=== PATIENT | female | born 1950 | race Caucasian/White ===

== ENCOUNTER → 2016-02-28 | Outpatient (CLI) | payer BC, OTHER | END | disposition home or self-care (01) | LOC: C.RDSM 14:50 | PROVIDERS: ATTEND Family Medicine | DX: M25.561 Pain in right knee (principal) ==

== ENCOUNTER → 2016-06-17 | Outpatient (CLI) | payer BC ==
--- NOTE | 2016-06-17 13:17 | MAMMOGRAPHY REPORT ---
BILATERAL DIGITAL SCREENING MAMMOGRAM WITH CAD: 06/17/2016 CLINICAL HISTORY: Routine screening examination. TECHNIQUE: Bilateral CC and MLO views were obtained. Current study was also evaluated with a Compu ter Aided Detection (CAD) system. COMPARISON: Comparison is made to exams dated: 06/13/2015 mammogram, 06/08/2014 mammogram, 06/04/2013 mammogram, 05/27/2011 ultrasound, 05/27/2012 mammogram, and 05/27/2011 mammogram - [facility] enter. BREAST COMPOSITION: The tissue of both breasts is heterogeneously dense, which may obscure small ma sses. FINDINGS: There are benign rim calcifications and minimal vascular calcifications in the breasts. N o suspicious mass, architectural distortion or cluster of suspicious microcalcifications is seen. IMPRESSION: ACR BI-RADS CATEGORY 1: NEGATIVE There is no mammographic evidence of malignancy. A 1 year screening mammogram is recommended. The p atient will receive written notification of the results. Approximately 10% of breast cancers are not detected with mammography. A negative mammographic repor t should not delay biopsy if a clinically suggestive mass is present. Eva Donald M.D. ay/:06/17/2016 08:05:02 Straightening Press Operator: Sandi EDWARDS(Lita)(M), [facility] letter sent: Normal 1/2 BI-RADS Code: ACR BI-RADS Category 1: Negative
== END | disposition home or self-care (01) ==
LOC: C.MAMM 07:20
PROVIDERS: ATTEND Family Medicine
DX: Z12.31 Encounter for screening mammogram for malignant neoplasm of breast (principal)

== ENCOUNTER → 2016-11-18 | Outpatient (CLI) | payer BC | END | disposition home or self-care (01) | LOC: C.MAMM 14:28 | PROVIDERS: ATTEND Nurse Practitioner Family | DX: Z13.820 Encounter for screening for osteoporosis (principal); M85.89 Other specified disorders of bone density and structure, multiple sites ==

== ENCOUNTER 2017-05-05 09:09 | Observation (INO) | payer BC, OTHER ==
[2017-05-05] VITALS (7 sets, daily range): BP systolic 137–174; BP diastolic 78–94; PULSE 59–71; TEMP 36.6–37.1; O2SAT 95–98; Ht 167.6 cm; Wt 60.5 kg
[~2017-05-05] VITALS: Ht 167.6 cm; Wt 60.5 kg
--- NOTE | 2017-05-05 09:27 | EMERGENCY ROOM VISIT NOTE ---
History Report prepared by Sloan: Deyvi Qureshi Under the Supervision of: Dr. Tj Graham D.O. First contact with patient: 09:11 Chief Complaint: CHEST PAIN Stated Complaint: CHEST PAIN History of Present Illness The patient is a 66 year old female who presents to the Emergency Room with complaints of chest pain. The patient states that she noticed chest discomfort and palpitations. She started having palpitations 2 nights ago. She states that this occurred at rest. She also noticed diaphoresis at that time. She awoke last night noticing chest discomfort. She described this as a pressure. It was also associated with diaphoresis. She noticed it was somewhat worsened when she went to go to the bathroom and walked a small distance. She knew she had a follow-up appointment with her primary care physician today. At that appointment she had an EKG and was sent to the emergency department by ambulance because of the EKG. The patient was given aspirin as well as nitroglycerin prior to arrival. She was given nitroglycerin by the center mgr but also by the primary care physician. At this time she states that she has no discomfort in her chest. She denies having any recent travel. She denies having any swelling in her legs or shortness of breath. She denies having any abdominal pain. She states that she noticed no maneuvers that made the pain better while she was at home. The patient did not have a previous EKG for the primary care physician to compare this to. Source of History: patient Onset: 2 nights ago Position: chest Quality: other (discomfort and pressure) Modifying Factors (Worsening): other (walking) Associated Symptoms: + diaphoresis, No SOB, No abdominal pain Note: She notes palpitations. She denies any leg swelling. Review of Systems See HPI for pertinent positives & negatives. A total of 10 systems reviewed and were otherwise negative. Past Medical & Surgical Medical Problems: (1) Fibroid uterus Surgical Problems: (1) History of hysterectomy Family History Heart disease Social History Smoking Status: Never Smoker Smokeless Tobacco Use: No Alcohol Use: occasionally Drug Use: none Marital Status: single Current/Historical Medications Scheduled Cyclosporine (Ophth) (Restasis), 1 DROP OP DAILY Allergies Coded Allergies: No Known Allergies (Unverified , 05/05/17) Physical Exam Vital Signs Date Time Temp Pulse Resp B/P (MAP) Pulse Ox O2 Delivery O2 Flow Rate FiO2 05/05/17 10:39 78 24 96 05/05/17 10:09 78 21 96 05/05/17 09:39 76 19 96 05/05/17 09:31 76 05/05/17 09:31 97 Room Air 05/05/17 09:27 166/94 05/05/17 09:20 98 Room Air 05/05/17 09:20 36.7 80 20 166/94 94 Room Air 05/05/17 09:15 136/92 05/05/17 09:09 103 28 95 Physical Exam GENERAL: Patient is awake alert in no acute distress patient is resting comfortably and showing no signs of anxiety EYES: The conjunctivae are clear. The pupils are round and reactive. EARS, NOSE, MOUTH AND THROAT: The nose is without any evidence of any deformity. Mucous membranes are moist tongue is midline NECK: The neck is nontender and supple. RESPIRATORY: Normal respiratory effort is noted there is no evidence of wheezing rhonchi or rales CARDIOVASCULAR: Regular rate and rhythm noted there no murmurs rubs or gallops normal S1 normal S2 GASTROINTESTINAL: The abdomen is soft. Bowel sounds are present in all quadrants. Abdomen is nontender MUSCULOSKELETAL/EXTREMITIES: There is no evidence of gross deformity full range of motion is noted in the hips and shoulders SKIN: There is no obvious evidence of any rash. There is no pedal edema noted. NEUROLOGIC: Patient is awake alert and oriented x3. Medical Decision & Procedures ER Provider Diagnostic Interpretation: Radiology results as stated below per my review and radiologist interpretation: CHEST ONE VIEW PORTABLE CLINICAL HISTORY: CHEST PAIN dyspnea COMPARISON STUDY: No previous studies for comparison. FINDINGS: The bones soft tissues and hemidiaphragms are normal. The cardiomediastinal silhouette is normal. The lungs are clear. The pulmonary vasculature is normal. IMPRESSION: Negative chest. The above report was generated using voice recognition software. It may contain grammatical, syntax or spelling errors. Electronically signed by: Dontae Serra M.D. 05/05/2017 9:37 AM Dictated Date/Time: 05/05/2017 9:37 AM Laboratory Results 05/05/17 09:00 Red Blood Count 4.74, Mean Corpuscular Volume 88.6, Mean Corpuscular Hemoglobin 30.4, Mean Corpuscular Hemoglobin Concent 34.3, Mean Platelet Volume 9.8, Neutrophils (%) (Auto) 60.6, Lymphocytes (%) (Auto) 31.5, Monocytes (%) (Auto) 6.4, Eosinophils (%) (Auto) 0.8, Basophils (%) (Auto) 0.6, Neutrophils # (Auto) 4.83, Lymphocytes # (Auto) 2.51, Monocytes # (Auto) 0.51, Eosinophils # (Auto) 0.06, Basophils # (Auto) 0.05 05/05/17 09:00 Test 05/05/17 09:00 05/05/17 09:28 05/05/17 09:57 White Blood Count 7.97 K/uL (4.8-10.8) Red Blood Count 4.74 M/uL (4.2-5.4) Hemoglobin 14.4 g/dL (12.0-16.0) Hematocrit 42.0 % (37-47) Mean Corpuscular Volume 88.6 fL (80-100) Mean Corpuscular Hemoglobin 30.4 pg (25-34) Mean Corpuscular Hemoglobin Concent 34.3 g/dl (32-36) Platelet Count 350 K/uL (130-400) Mean Platelet Volume 9.8 fL (7.4-10.4) Neutrophils (%) (Auto) 60.6 % Lymphocytes (%) (Auto) 31.5 % Monocytes (%) (Auto) 6.4 % Eosinophils (%) (Auto) 0.8 % Basophils (%) (Auto) 0.6 % Neutrophils # (Auto) 4.83 K/uL (1.4-6.5) Lymphocytes # (Auto) 2.51 K/uL (1.2-3.4) Monocytes # (Auto) 0.51 K/uL (0.11-0.59) Eosinophils # (Auto) 0.06 K/uL (0-0.5) Basophils # (Auto) 0.05 K/uL (0-0.2) RDW Standard Deviation 44.6 fL (36.4-46.3) RDW Coefficient of Variation 13.5 % (11.5-14.5) Immature Granulocyte % (Auto) 0.1 % Immature Granulocyte # (Auto) 0.01 K/uL (0.00-0.02) Anion Gap 8.0 mmol/L (3-11) Est Creatinine Clear Calc Drug Dose 65.5 ml/min Estimated GFR () 84.6 Estimated GFR (Non- 73.0 BUN/Creatinine Ratio 27.4 (10-20) Calcium Level 9.3 mg/dl (8.5-10.1) Magnesium Level 2.4 mg/dl (1.8-2.4) Total Bilirubin 0.4 mg/dl (0.2-1) Direct Bilirubin < 0.1 mg/dl (0-0.2) Aspartate Amino Transf (AST/SGOT) 24 U/L (15-37) Alanine Aminotransferase (ALT/SGPT) 30 U/L (12-78) Alkaline Phosphatase 82 U/L (45-117) Total Protein 7.9 gm/dl (6.4-8.2) Albumin 4.2 gm/dl (3.4-5.0) Triglycerides Level 98 mg/dl (0-150) Cholesterol Level 254 mg/dl (0-200) HDL Cholesterol 94 mg/dl LDL Cholesterol, Calculated 140 mg/dl VLDL Cholesterol, Calculated 20 mg/dl Cholesterol/HDL Ratio 2.7 Lipase 173 U/L (73-393) Thyroid Stimulating Hormone (TSH) 1.150 uIu/ml (0.300-4.500) Free Thyroxine 0.83 ng/dl (0.80-1.60) Bedside Troponin I < 0.030 ng/ml (0-0.045) Prothrombin Time 10.0 SECONDS (9.0-12.0) Prothromb Time International Ratio 1.0 (0.9-1.1) Activated Partial Thromboplast Time 25.5 SECONDS (21.0-31.0) Partial Thromboplastin Ratio 1.0 D-Dimer 350 ug/L FEU (0-500) Laboratory results per my review. Medications Administered Medications (Trade) Dose Ordered Sig/Patrica Route Start Time Stop Time Status Last Admin Dose Admin Sodium Chloride 1,000 ml @ 75 mls/hr [id number] IV 05/05/17 11:03 06/04/17 11:02 05/05/17 14:01 75 MLS/HR Sodium Chloride 1,000 ml @ 999 mls/hr Q1H1M ONCE IV 05/05/17 11:15 05/05/17 12:15 DC 05/05/17 11:15 999 MLS/HR ECG Per My Interpretation Indication: chest pain Rate (beats per minute): 80 Rhythm: normal sinus Findings: ST depression (Lateral), other (Poor R-wave progression was noted. Incomplete right bundle branch block pattern was noted.) Change: no significant change (Compared to tracing done in the office earlier this morning.) ED Course 09: The patient was evaluated in room A10. A complete history and physical examination were performed. 1002: I reassessed the patient at this time. She is still pain free. I discussed the results and treatment plan with the patient. I answered all pertaining questions that she had. She expressed understanding and verbalized agreement. The patient will be further evaluated. 1018: I spoke with Dr. Sky Yang [facility] hospitalist. We discussed the patients case. The patient will be evaluated by the [facility] for further management. Medical Decision Prior records/ancillary studies reviewed. Triage Nursing notes reviewed. Additional history obtained from the prehospital personnel. The patient's history was concerning for chest pain. Differential diagnosis: Etiologies such as cardiac ischemia, aortic dissection, pulmonary embolism, pneumonia, pneumothorax, musculoskeletal, infections, pericarditis, myocarditis , esophageal rupture, gastrointestinal, as well as others were entertained. The patient is a 66-year-old female who presented to the emergency department for an evaluation of chest discomfort. The patient started having palpitations a few nights ago associated with diaphoresis. She then started to develop exertional chest discomfort. She was treated with aspirin and nitroglycerin prior to arrival at her primary care physician's office as well as by the prehospital personnel. At this time she is pain-free. She does have some ST segment abnormalities on her EKG but no previous one could be found for comparison. Her initial troponin was negative. I discussed the patient's laboratory and radiographic studies with her. I also discussed the limitations of the emergency department workup for chest pain. Given her abnormal EKG and her family history I discussed her case with the on-call alex [facility] hospitalist. They have agreed to evaluate the patient in the emergency department for further management and disposition. Medication Reconcilliation Current Medication List: was personally reviewed by me Blood Pressure Screening Patient's blood pressure: Elevated blood pressure Blood pressure disposition: Elevated BP felt to be situational Consults Time Called: 1006 Consulting Physician: Dr. Sky Yang [facility] hospitalist Returned Call: [address] Sky Yang [facility] hospital[facility]. We discussed the patient' s case. The patient will be evaluated by the [facility] for further management. Impression Primary Impression: Chest pain Additional Impression: Abnormal ECG Scribe Attestation The scribe's documentation has been prepared under my direction and personally reviewed by me in its entirety. I confirm that the note above accurately reflects all work, treatment, procedures, and medical decision making performed by me. Departure Information Dispostion Being Evaluated By Hospitalist Referrals Pao Espinal C.RNakiaN.PNakia (PCP) Patient Instructions My [facility] Problem Qualifiers Primary Impression: Chest pain Chest pain type: unspecified Qualified Codes: R07.9 - Chest pain, unspecified
[2017-05-05 09:30] LABS: BASO % 0.6 %; BASO ABS # 0.05 K/uL (0-0.2); EOS % 0.8 %; EOS ABS # 0.06 K/uL (0-0.5); HEMOGLOBIN 14.4 g/dL (12.0-16.0); IG# 0.01 K/uL (0.00-0.02); LYMPH % 31.5 %; LYMPH ABS # 2.51 K/uL (1.2-3.4); MEAN CELL VOLUME 88.6 fL (80-100); MEAN CORPUSCULAR HEMOGLOBIN 30.4 pg (25-34); MEAN CORPUSCULAR HGB CONC 34.3 g/dl (32-36); MEAN PLATELET VOLUME 9.8 fL (7.4-10.4); MONO % 6.4 %; MONO ABS # 0.51 K/uL (0.11-0.59); NEUT % 60.6 %; NEUT ABS # 4.83 K/uL (1.4-6.5); PLATELET COUNT 350 K/uL (130-400); RED CELL DISTRIBUTION WIDTH CV 13.5 % (11.5-14.5); RED CELL DISTRIBUTION WIDTH SD 44.6 fL (36.4-46.3); WHITE BLOOD COUNT 7.97 K/uL (4.8-10.8)
--- NOTE | 2017-05-05 09:39 | DIAGNOSTIC IMAGING REPORT ---
CHEST ONE VIEW PORTABLE CLINICAL HISTORY: CHEST PAIN dyspnea COMPARISON STUDY: No previous studies for comparison. FINDINGS: The bones soft tissues and hemidiaphragms are normal. The cardiomediastinal silhouette is normal. The lungs are clear. The pulmonary vasculature is normal. IMPRESSION: Negative chest. The above report was generated using voice recognition software. It may contain grammatical, syntax or spelling errors. Electronically signed by: Dontae Serra M.D. 05/05/2017 9:37 AM Dictated Date/Time: 05/05/2017 9:37 AM
[2017-05-05 09:49] LABS: ALBUMIN 4.2 gm/dl (3.4-5.0); ALT/SGPT 30 U/L (12-78); BLOOD UREA NITROGEN 23 mg/dl (7-18); CALCIUM 9.3 mg/dl (8.5-10.1); CARBON DIOXIDE 29 mmol/L (21-32); CREATININE 0.83 mg/dl (0.60-1.20); GLUCOSE 111 mg/dl (70-99); LIPASE 173 U/L (73-393); POTASSIUM 3.9 mmol/L (3.5-5.1); SODIUM 138 mmol/L (136-145)
[2017-05-05 09:58] LABS: ALKALINE PHOSPHATASE 82 U/L (45-117); AST/SGOT 24 U/L (15-37); TOTAL PROTEIN 7.9 gm/dl (6.4-8.2)
[2017-05-05] MEDS ORDERED: CYCL0.052 OP (10:24)
[2017-05-05 10:27] LABS: PTT PATIENT 25.5 SECONDS (21.0-31.0)
[2017-05-05] MEDS ORDERED: ZOLPIDEM TARTRATE 5 MG TAB PO PRN ×2 (11:15)
[2017-05-05] MEDS ORDERED: ALUMINUM/MAGNESIUM/SIMETH (MAALOX MAX) 30 ML UDC PO PRN (11:15)
[2017-05-05] MEDS ORDERED: ACETAMINOPHEN 325 MG TAB PO PRN (11:15)
[2017-05-05] MEDS ORDERED: ONDANSETRON INJ 2 MG/ML 2 ML VIAL IV PRN (11:15)
[2017-05-05] MEDS ORDERED: POLYETHYLENE (MIRALAX) 17 GM PACK PO PRN (11:15)
[2017-05-05] MEDS ORDERED: MoRPHine SULFATE 2 MG/ML CARP IV PRN (11:15)
[2017-05-05] MEDS ORDERED: MAGNESIUM HYDROXIDE SUSP 30 ML UDC PO PRN (11:15)
[2017-05-05] MEDS ORDERED: SODIUM CHLORIDE 0.9% 1000ML 1,000 ML IV ONE (11:15)
[2017-05-05] MEDS ORDERED: NITROGLYCERIN 0.4 MG SL PER TAB CHARGE SL PRN (11:15)
--- NOTE | 2017-05-05 11:25 | History and Physical ---
History & Physical Date & Time of Service: May 05, 2017 at 11:19 Chief Complaint: Chest Pain Primary Care Physician: Pao Espinal C.RNakiaNNakiaPNakia History of Present Illness Source: patient, family 66-year-old female with past medical history. He was in her regular state of health until 2 days ago when she fell about 2-3 minutes. No other associated symptoms no shortness of breath or chest pain at that time. Yesterday patient went to a class everything was fine. After that about 4 AM she confirms the with diaphoresis and substernal chest tightness 5/10, described as squeezing tightness in character. Localized in the substernal area to the mid back. Aside from the diaphoresis/sweating was no other associated factors. No shortness of breath, no dizziness, fluttering that happened the day before but did not come back. Pain lasted about 2 hours and then partially subsided. No aggravating or relieving factors. Patient went back to sleep and when she woke up in the morning she already has an appointment with her doctor. At her doctor 's office patient still had slight mild pain/pressure in the substernal area. Her doctor did an EKG that showed some minimal ST T-wave depressions, give her some lingula nitro and called the ambulance. In the ambulance she received aspirin and nitro and the patient said her pain completely resolved. Patient does not smoke drinks only socially Denies any high blood pressure or diabetes His only risk factor is that her father had his first heart attack in his 40s 2 weeks ago patient traveled by the car to [place] and came back in the same day. A month and a half ago she traveled to [place] with the car for 8 hours and contact. She does have mild pain behind her left knee Family History Heart disease Social History Smoking Status: Never Smoker Smokeless Tobacco Use: No Drug Use: none Marital Status: single Allergies Coded Allergies: No Known Allergies (Unverified , 05/05/17) Home Medications Scheduled Cyclosporine (Ophth) (Restasis), 1 DROP OP DAILY Review of Systems Review of system Constitutional: No fever / no chills / no sweats / no weakness / no fatigue Eyes: no blurring of vision / no eye pain / no discharge / no redness ENT: no hearing loss / no epistaxis /no swallowing problems Respiratory: no cough / no wheezing / no SOB / no hemoptysis Cardiovascular: Pain and fluttering in his mentioned in HPI/ no lower extremity edema / no palpitation Abdomen: no pain / no nausea / no vomiting / no constipation Musculoskeletal: no joint pain / no muscle pain / no joint swelling Genitourinary: no dysuria / no incontinence / no urinary retention Neurologic: no focal weakness / no numbness/tingling / no ataxia Psychiatric: no depression symptoms / no anxiety / no insomnia Endocrine: no excessive thirst / no excessive urination Hematologic: no abnormal bleeding / no bruising / no LN swelling Skin: No rash / no pallor Physical Exam Vital Signs Date Time Temp Pulse Resp B/P (MAP) Pulse Ox O2 Delivery O2 Flow Rate FiO2 05/05/17 10:39 78 24 96 05/05/17 10:09 78 21 96 05/05/17 09:39 76 19 96 05/05/17 09:31 76 05/05/17 09:31 97 Room Air 05/05/17 09:27 166/94 05/05/17 09:20 98 Room Air 05/05/17 09:20 36.7 80 20 166/94 94 Room Air 05/05/17 09:15 136/92 05/05/17 09:09 103 28 95 Physical examination General patient appears to be comfortable, not in acute distress HEENT: Atraumatic , normocephalic /no jaundice /no pallor /anicteric /no dry mucous membrane /normal external ear inspection Neck: Supple /no swelling /central trach Heart: S1/S2 normal/regular rate and rhythm/no gallop /no rub /no murmur Lungs: Clear to auscultation bilaterally/normal chest with expansion/no rhonchi/ no rales/no wheezing/no use of accessory muscles of respiration Abdomen: Soft/nontender/no guarding/no rebound/no organomegaly/no pulsatile mass Musculoskeletal: No swelling/no edema/no tenderness/normal range of motion Neuro exam: Awake alert oriented 3/cranial nerves II through XII appear to be intact/sensation intact/moves all extremities/no abnormal movements Psychiatric evaluation: No depressed mood/normal affect Skin: No rash on exposed skin area/no erythema Extremity: Normal pulse/no pitting edema/no clubbing or cyanosis Endocrine/lymphatic: No obvious lymphadenopathy /no lymphedema Diagnostics Laboratory Results Results Past 24 Hours Test 05/05/17 09:00 05/05/17 09:28 05/05/17 09:57 05/05/17 11:03 Range/Units White Blood Count 7.97 4.8-10.8 K/uL Red Blood Count 4.74 4.2-5.4 M/uL Hemoglobin 14.4 12.0-16.0 g/dL Hematocrit 42.0 37-47 % Mean Corpuscular Volume 88.6 80-100 fL Mean Corpuscular Hemoglobin 30.4 25-34 pg Mean Corpuscular Hemoglobin Concent 34.3 32-36 g/dl Platelet Count 350 130-400 K/uL Mean Platelet Volume 9.8 7.4-10.4 fL Neutrophils (%) (Auto) 60.6 % Lymphocytes (%) (Auto) 31.5 % Monocytes (%) (Auto) 6.4 % Eosinophils (%) (Auto) 0.8 % Basophils (%) (Auto) 0.6 % Neutrophils # (Auto) 4.83 1.4-6.5 K/uL Lymphocytes # (Auto) 2.51 1.2-3.4 K/uL Monocytes # (Auto) 0.51 0.11-0.59 K/uL Eosinophils # (Auto) 0.06 0-0.5 K/uL Basophils # (Auto) 0.05 0-0.2 K/uL RDW Standard Deviation 44.6 36.4-46.3 fL RDW Coefficient of Variation 13.5 11.5-14.5 % Immature Granulocyte % (Auto) 0.1 % Immature Granulocyte # (Auto) 0.01 0.00-0.02 K/uL Sodium Level 138 136-145 mmol/L Potassium Level 3.9 3.5-5.1 mmol/L Chloride Level 101 98-107 mmol/L Carbon Dioxide Level 29 21-32 mmol/L Anion Gap 8.0 3-11 mmol/L Blood Urea Nitrogen 23 7-18 mg/dl Creatinine 0.83 0.60-1.20 mg/dl Est Creatinine Clear Calc Drug Dose 65.5 ml/min Estimated GFR () 84.6 Estimated GFR (Non- 73.0 BUN/Creatinine Ratio 27.4 10-20 Random Glucose 111 70-99 mg/dl Calcium Level 9.3 8.5-10.1 mg/dl Magnesium Level 2.4 1.8-2.4 mg/dl Total Bilirubin 0.4 0.2-1 mg/dl Direct Bilirubin < 0.1 0-0.2 mg/dl Aspartate Amino Transf (AST/SGOT) 24 15-37 U/L Alanine Aminotransferase (ALT/SGPT) 30 12-78 U/L Alkaline Phosphatase 82 45-117 U/L Total Protein 7.9 6.4-8.2 gm/dl Albumin 4.2 3.4-5.0 gm/dl Lipase 173 73-393 U/L Thyroid Stimulating Hormone (TSH) 1.150 0.300-4.500 uIu/ml Free Thyroxine 0.83 0.80-1.60 ng/dl Bedside Troponin I < 0.030 0-0.045 ng/ml Prothrombin Time 10.0 9.0-12.0 SECONDS Prothromb Time International Ratio 1.0 0.9-1.1 Activated Partial Thromboplast Time 25.5 21.0-31.0 SECONDS Partial Thromboplastin Ratio 1.0 Impression Assessment and Plan 66-year-old female with history of recent travel, presented to the ED with 2 days history of fluttering/chest tightness and abnormal EKG at her primary care physician office. Assessment Chest fluttering rule out arrhythmia Chest pain with abnormal EKG rule out ACS History of recent travel with some tightness in her left knee plan: admit to telemetry obtain serial cardiac enz NTG SL/topical prn CP consult guard dance hall Due to her history of recent travel will check d-dimer, ultrasound left lower extremity Due to her history of fluttering, TSH was checked and was normal pain management Check hemoglobin A1c/lipids to stratify patient risk factors repeat EKG prn chest pain Resuscitation Status VTE Prophylaxis Will order VTE Prophylaxis: Yes
[2017-05-05] MEDS: SODIUM CHLORIDE 0.9% 1000ML 1,000 ML IV SCH ×2 (12:51→14:01)
--- NOTE | 2017-05-05 15:15 | Cardiology Consultation ---
Cardiology Consultation Date of Consultation: May 05, 2017. Requesting Physician: Dr. Yang Reason for Consultation: Chest pain Pt evaluation today including: conversation w/ patient, conversation w/ family , physical exam, lab review, review of studies, review of inpatient medication list History of Present Illness This is a very pleasant 66-year-old woman who has been in very good health. She has never had cardiovascular symptoms in the past, however 2 days prior to admission she developed a fluttering sensation in her chest, this lasted between 1 and 2 minutes, was not associated with lightheadedness, dizziness, chest discomfort or shortness of breath. That resolved and then this morning she woke up at about 4 AM with a squeezing sensation in her chest, she describes it as a sensation like someone squeezing with their fist. The discomfort came and went for most of the time this morning, she had an appointment with her PCP and when she described that she was given a sublingual nitroglycerin and after that it gradually disappeared. The discomfort was present for many hours however before resolving. Currently she feels well, she has no discomfort, and has no shortness of breath or palpitations. The fluttering has not returned. She has noted no change in exercise lately, no peripheral edema and has not traveled recently. So far initial evaluation has been unrevealing but only one set of enzymes in 1 electrocardiogram have been done yet. A d-dimer was negative. Past Medical/Surgical History (1) Fibroid uterus (2) History of hysterectomy Family History Heart disease Social History Smoking Status: Never Smoker History of Alcohol Use: Yes (1 to 2 glasses wine a few times a week) Review of Systems Constitutional: No fever, No weight loss, No weakness Respiratory: No cough, No wheezing, No shortness of breath, No dyspnea on exertion Cardiac: + see HPI, + chest pain, + palpitations, No orthopnea, No PND, No edema Abdomen: No pain, No nausea, No vomiting, No diarrhea, No GI bleeding Female : No problem reported Neurologic: No paralysis, No weakness, No numbness/tingling, No balance problems Heme: No abnormal bleeding/bruising, No clotting problems Endo: No fatigue Skin: No problem reported All Other Systems: Reviewed and Negative Allergies Coded Allergies: No Known Allergies (Unverified , 05/05/17) Medications Current Inpatient Medications Medications (Trade) Dose Ordered Sig/Patrica Route Start Time Stop Time Status Last Admin Dose Admin Enoxaparin Sodium (Lovenox Inj) 40 mg Q24H SC 05/05/17 12:00 06/04/17 11:59 Sodium Chloride 1,000 ml @ 75 mls/hr [id number] IV 05/05/17 11:03 06/04/17 11:02 05/05/17 14:01 75 MLS/HR Acetaminophen (Tylenol Tab) 650 mg Q4H PRN PO 05/05/17 11:15 06/04/17 11:14 Al Hydrox/Mg Hydrox/Simethicone (Maalox Max Susp) 15 ml Q4H PRN PO 05/05/17 11:15 06/04/17 11:14 Magnesium Hydroxide (Milk Of Magnesia Susp) 30 ml Q12H PRN PO 05/05/17 11:15 06/04/17 11:14 Zolpidem Tartrate (Ambien Tab) 5 mg HSZ PRN PO 05/05/17 11:15 06/04/17 11:14 Zolpidem Tartrate (Ambien Tab) 5 mg HSZ PRN PO 05/05/17 11:15 06/04/17 11:14 Ondansetron HCl (Zofran Inj) 4 mg Q6H PRN IV 05/05/17 11:15 06/04/17 11:14 Nitroglycerin (Nitrostat Tab) 0.4 mg UD PRN SL 05/05/17 11:15 06/04/17 11:14 Morphine Sulfate (MoRPHine SULFATE INJ) 2 mg Q30M PRN IV 05/05/17 11:15 05/19/17 11:14 Aspirin (Ecotrin Tab) 325 mg QAM PO 05/06/17 09:00 06/05/17 08:59 Polyethylene (Miralax Powder Packet) 17 gm DAILY PRN PO 05/05/17 11:15 06/04/17 11:14 Physical Exam Vital Signs Past 12 Hours Date Time Temp Pulse Resp B/P (MAP) Pulse Ox O2 Delivery O2 Flow Rate FiO2 05/05/17 12:23 37.1 71 17 174/94 (120) 98 Room Air 05/05/17 12:00 96 Room Air 05/05/17 11:47 76 18 156/93 96 05/05/17 11:40 96 Room Air 05/05/17 10:39 78 24 96 05/05/17 10:09 78 21 96 05/05/17 09:39 76 19 96 05/05/17 09:31 76 05/05/17 09:31 97 Room Air 05/05/17 09:27 166/94 05/05/17 09:20 98 Room Air 05/05/17 09:20 36.7 80 20 166/94 94 Room Air 05/05/17 09:15 136/92 05/05/17 09:09 103 28 95 Constitutional: General Apperance: heathly-appearing Level of Distress: NAD Psychiatric: Mental Status: active & alert Head: normocephalic Eyes: EOM: EOMI ENMT: normal ENT inspection, hearing grossly normal Neck: supple, no masses Lungs: Respiratory effort: no dyspnea, good air movement Auscultation: breath sounds normal, no wheezing Cardiovascular: Heart Auscultation: RRR, no murmurs, no rubs, no gallops Peripheral Pulses: Bruits: none appreciated Abdomen: Bowel Sounds: normal Inspection & Palpation: soft, no tenderness, guarding & rebound, no masses Musculoskeletal: normal strength (5/5 throughout) Extremities: no edema Neurologic: Cranial Nerves: grossly intact Sensation: grossly intact Data Laboratory Results: Last 24 Hours Test 05/05/17 09:00 05/05/17 09:28 05/05/17 09:57 White Blood Count 7.97 K/uL Red Blood Count 4.74 M/uL Hemoglobin 14.4 g/dL Hematocrit 42.0 % Mean Corpuscular Volume 88.6 fL Mean Corpuscular Hemoglobin 30.4 pg Mean Corpuscular Hemoglobin Concent 34.3 g/dl Platelet Count 350 K/uL Mean Platelet Volume 9.8 fL Neutrophils (%) (Auto) 60.6 % Lymphocytes (%) (Auto) 31.5 % Monocytes (%) (Auto) 6.4 % Eosinophils (%) (Auto) 0.8 % Basophils (%) (Auto) 0.6 % Neutrophils # (Auto) 4.83 K/uL Lymphocytes # (Auto) 2.51 K/uL Monocytes # (Auto) 0.51 K/uL Eosinophils # (Auto) 0.06 K/uL Basophils # (Auto) 0.05 K/uL RDW Standard Deviation 44.6 fL RDW Coefficient of Variation 13.5 % Immature Granulocyte % (Auto) 0.1 % Immature Granulocyte # (Auto) 0.01 K/uL Sodium Level 138 mmol/L Potassium Level 3.9 mmol/L Chloride Level 101 mmol/L Carbon Dioxide Level 29 mmol/L Anion Gap 8.0 mmol/L Blood Urea Nitrogen 23 mg/dl Creatinine 0.83 mg/dl Est Creatinine Clear Calc Drug Dose 65.5 ml/min Estimated GFR () 84.6 Estimated GFR (Non- 73.0 BUN/Creatinine Ratio 27.4 Random Glucose 111 mg/dl Calcium Level 9.3 mg/dl Magnesium Level 2.4 mg/dl Total Bilirubin 0.4 mg/dl Direct Bilirubin < 0.1 mg/dl Aspartate Amino Transf (AST/SGOT) 24 U/L Alanine Aminotransferase (ALT/SGPT) 30 U/L Alkaline Phosphatase 82 U/L Total Protein 7.9 gm/dl Albumin 4.2 gm/dl Triglycerides Level 98 mg/dl Cholesterol Level 254 mg/dl HDL Cholesterol 94 mg/dl LDL Cholesterol, Calculated 140 mg/dl VLDL Cholesterol, Calculated 20 mg/dl Cholesterol/HDL Ratio 2.7 Lipase 173 U/L Thyroid Stimulating Hormone (TSH) 1.150 uIu/ml Free Thyroxine 0.83 ng/dl Bedside Troponin I < 0.030 ng/ml Prothrombin Time 10.0 SECONDS Prothromb Time International Ratio 1.0 Activated Partial Thromboplast Time 25.5 SECONDS Partial Thromboplastin Ratio 1.0 D-Dimer 350 ug/L FEU Imaging: Chest x-ray shows no active disease EKG: Sinus rhythm with what appears to be an old anterior myocardial infarction Telemetry reviewed: Sinus rhythm, no significant abnormality Assessment & Plan 1. Chest discomfort: Her chest discomfort is somewhat atypical for coronary artery disease in view of the long duration with no objective findings thus far. Her description however is worrisome and the presence of precordial Q waves is also worrisome. This could represent prior ischemic heart disease, it does not appear to be an acute myocardial infarction. I agree with trending enzymes, serial electrocardiograms and if these are unremarkable I would consider stress testing tomorrow. If these show abnormalities we may have to consider catheterization. Her total cholesterol is somewhat elevated, however her HDL is quite high and therefore her non-HDL cholesterol is reasonable although not ideal. Her blood pressure has been quite elevated here. 2. Fluttering: This could have been an arrhythmia or just some other sensation , so far she has not had any arrhythmia identified but the symptoms have not recurred. I would keep her on the monitor while she is here, if they do not occur in the hospital but occur following discharge we can consider event monitoring but without recurrence I probably would not do that. 3. Hypertension: She has remained hypertensive here and I think should be treated, given her presentation with chest discomfort I would like to start a beta-blue. I will do that today. Thank you for allowing me to participate in her care.
[2017-05-05] MEDS: ENOXAPARIN 40 MG/0.4 ML SYR SC SCH (15:20)
[2017-05-05] MEDS ORDERED: METOPROLOL TARTRATE 25 MG TAB PO ONE (15:30)
[2017-05-05] MEDS ORDERED: IV FLUIDS COMPLETED PRN (16:30)
[2017-05-05] MEDS: METOPROLOL TARTRATE 25 MG TAB PO SCH (19:28)
[2017-05-06 03:34] VITALS: BP 140/87; PULSE 65; TEMP 36.5; O2SAT 95
[2017-05-06 05:15] LABS: BASO % 0.6 %; BASO ABS # 0.04 K/uL (0-0.2); EOS % 1.6 %; EOS ABS # 0.11 K/uL (0-0.5); HEMATOCRIT 38.1 % (37-47); HEMOGLOBIN 13.2 g/dL (12.0-16.0); IG# 0.01 K/uL (0.00-0.02); LYMPH % 36.9 %; MEAN CELL VOLUME 88.2 fL (80-100); MEAN CORPUSCULAR HEMOGLOBIN 30.6 pg (25-34); MEAN CORPUSCULAR HGB CONC 34.6 g/dl (32-36); MEAN PLATELET VOLUME 9.4 fL (7.4-10.4); MONO ABS # 0.56 K/uL (0.11-0.59); NEUT % 52.8 %; NEUT ABS # 3.72 K/uL (1.4-6.5); PLATELET COUNT 342 K/uL (130-400); RED CELL DISTRIBUTION WIDTH CV 13.4 % (11.5-14.5); RED CELL DISTRIBUTION WIDTH SD 43.9 fL (36.4-46.3); WHITE BLOOD COUNT 7.04 K/uL (4.8-10.8)
[2017-05-06 06:32] LABS: BLOOD UREA NITROGEN 14 mg/dl (7-18); GLUCOSE 95 mg/dl (70-99)
[2017-05-06 06:33] LABS: ALBUMIN 3.4 gm/dl (3.4-5.0); CALCIUM 8.8 mg/dl (8.5-10.1); CARBON DIOXIDE 26 mmol/L (21-32); CREATININE 0.77 mg/dl (0.60-1.20); POTASSIUM 3.7 mmol/L (3.5-5.1); SODIUM 139 mmol/L (136-145); TOTAL PROTEIN 6.5 gm/dl (6.4-8.2)
[2017-05-06 06:34] LABS: ALKALINE PHOSPHATASE 60 U/L (45-117); ALT/SGPT 27 U/L (12-78); AST/SGOT 15 U/L (15-37)
[2017-05-06 06:56] LABS: HEMOGLOBIN A1C 5.6 % (4.5-5.6)
[2017-05-06 07:05] VITALS: BP 138/80; PULSE 56; TEMP 36.8; O2SAT 95
[2017-05-06] MEDS: METOPROLOL TARTRATE 25 MG TAB PO SCH (07:38)
[2017-05-06] MEDS ORDERED: ASPIRIN 325 MG ECTAB PO SCH (09:00)
[2017-05-06 11:06] VITALS: BP 159/92; PULSE 86; TEMP 37; O2SAT 98
--- NOTE | 2017-05-06 11:41 | EXERCISE STRESS ECHO ---
*NOTICE TO RECEIVING [employer] This information is strictly Confidential and protected under [place] law. [place] law prohibits you from making any further disclosure of this information unless further disclosure is expressly permitted by the written consent of the person to whom it pertains or is authorized by law. A general authorization for the release of medical or other information is not sufficient for this purpose. Hospital accepts no responsibility if the information is made available to any other person, INCLUDING THE PATIENT. Interpretation Summary * Name: TYE MUNROE Study Date: 05/06/2017 06:50 AM BP: 162/100 mmHg * Patient Location: C.2T\S\S239\S\1 HR: 70 * : 1950 (M/d/yyyy) Gender: Female Height: 66 in * Age: 66 yrs Ethnicity: CA Weight: 133 lb * Ordering Physician: Wilman Dey * Referring Physician: Self, Referred * Performed By: Alissa Lynch RDCS * * Reason For Study: CHEST PAIN * BSA: 1.7 m2 * -- Conclusions -- * Left ventricular systolic function is normal. * Diastolic dysfunction, Grade II, consistent with elevated left atrial pressure. * There is mild to moderate mitral regurgitation. * Right ventricular systolic pressure is normal. * Normal exercise echocardiogram without evidence of inducible ischemia. Procedure Details * ECHOEX, CPT #60469 Left Ventricular Findings with Stress * Normal exercise echocardiogram without evidence of inducible ischemia. Left Ventricle * The left ventricle is normal in size. * There is normal left ventricular wall thickness. * Ejection Fraction = 65-70%. * Left ventricular systolic function is normal. * Diastolic dysfunction, Grade II, consistent with elevated left atrial pressure. * The left ventricular wall motion is normal at rest. Right Ventricle * The right ventricle is normal in size and function. * The right ventricular systolic function is normal as assessed by tricuspid annular plane systolic excursion (TAPSE) (normal >1.5 cm). Atria * The left atrial size is normal. * Right atrial size is normal. Mitral Valve * The mitral valve anatomy is normal. * There is mild to moderate mitral regurgitation. Tricuspid Valve * The tricuspid valve is not well visualized, but is grossly normal. * There is mild tricuspid regurgitation. * Right ventricular systolic pressure is normal. Aortic Valve * The aortic valve is normal in structure and function. * The aortic valve is trileaflet. * No hemodynamically significant valvular aortic stenosis. * There is no significant aortic regurgitation. Great Vessels * The aortic root is normal size. Pericardium * There is no pericardial effusion. Stress Parameters * The stress portion of this study was personally supervised by the undersigned interpreting physician. * Rest heart rate was '70' BPM. * Rest blood pressure was '162/100' * Maximum heart rate achieved was 141 bpm. * Maximum heart rate was 92 % of maximum age-predicted heart rate. * Maximum blood pressure was '162/100' * Total exercise time was '8:00' * Maximum exercise MET level achieved was '10.10' METS * Maximum treadmill speed was '3.40' miles per hour. * Maximum treadmill elevation was '14.00'% grade. * Exercise was terminated due to 'ACHIEVING TARGET HR' Left Ventricular Findings with Stress * Baseline EKG demonstrated right bundle branch block There are no significant ST or T-wave changes during exercise recovery Baseline echocardiogram demonstrated normal wall motion There was normal augmentation of all segments without development of regional wall motion abnormalities at peak exertion Heart rate and blood pressure response to exercise was normal Ruiz treadmill score: 8 (low risk) MMode 2D Measurements and Calculations IVSd 1.0 cm IVSs 1.5 cm LVIDd 4.0 cm LVIDs 2.7 cm LVPWd 1.1 cm LVPWs 1.6 cm IVS/LVPW 0.91 FS 32.2 % EDV(Teich) 69.4 ml ESV(Teich) 27.0 ml EF(Teich) 61.0 % EDV(cubed) 63.3 ml ESV(cubed) 19.7 ml EF(cubed) 68.8 % % IVS thick 39.6 % % LVPW thick 36.1 % LV mass(C)d 143.6 grams LV mass(C)dI 85.4 grams/m\S\2 LV mass(C)s 139.4 grams LV mass(C)sI 82.9 grams/m\S\2 SV(Teich) 42.3 ml SI(Teich) 25.2 ml/m\S\2 SV(cubed) 43.6 ml SI(cubed) 25.9 ml/m\S\2 Ao root diam 3.3 cm Ao root area 8.6 cm\S\2 LA dimension 2.6 cm LA/Ao 0.79 LVAd ap4 24.2 cm\S\2 LVLd ap4 7.6 cm EDV(MOD-sp4) 64.7 ml EDV(sp4-el) 65.5 ml LVAs ap4 12.7 cm\S\2 LVLs ap4 6.5 cm ESV(MOD-sp4) 21.9 ml ESV(sp4-el) 21.0 ml EF(MOD-sp4) 66.2 % EF(sp4-el) 68.0 % LVAd ap2 18.9 cm\S\2 LVLd ap2 7.8 cm EDV(MOD-sp2) 38.5 ml EDV(sp2-el) 39.1 ml LVAs ap2 10.1 cm\S\2 LVLs ap2 6.6 cm ESV(MOD-sp2) 14.5 ml ESV(sp2-el) 13.1 ml EF(MOD-sp2) 62.4 % EF(sp2-el) 66.4 % LVLd %diff 2.3 % EDV(MOD-bp) 50.5 ml LVLs %diff 0.79 % ESV(MOD-bp) 17.9 ml EF(MOD-bp) 64.5 % SV(MOD-sp4) 42.9 ml SI(MOD-sp4) 25.5 ml/m\S\2 SV(MOD-sp2) 24.1 ml SI(MOD-sp2) 14.3 ml/m\S\2 SV(MOD-bp) 32.5 ml SI(MOD-bp) 19.3 ml/m\S\2 SV(sp4-el) 44.5 ml SI(sp4-el) 26.5 ml/m\S\2 SV(sp2-el) 26.0 ml SI(sp2-el) 15.4 ml/m\S\2 Doppler Measurements and Calculations MV E max wyatt 81.5 cm/sec MV A max wyatt 64.5 cm/sec MV E/A 1.3 MV dec time 0.21 sec Ao V2 max 142.4 cm/sec Ao max PG 8.1 mmHg Ao max PG (full) 0.90 mmHg LV V1 max PG 7.2 mmHg LV V1 max 134.3 cm/sec TR max wyatt 198.0 cm/sec
[2017-05-06] MEDS: SODIUM CHLORIDE 0.9% 1000ML 1,000 ML IV SCH (11:42)
[2017-05-06] MEDS: ENOXAPARIN 40 MG/0.4 ML SYR SC SCH (11:42)
[2017-05-06] MEDS ORDERED: LPR25 PO (12:03)
[2017-05-06] MEDS ORDERED: ASPI81CH2 PO (12:03)
--- NOTE | 2017-05-06 12:07 | Discharge Instructions ---
Discharge Instructions Date of Service May 06, 2017. Admission Reason for Admission: Chest Pain Discharge Discharge Diagnosis / Problem: Chest pain/ sensation of fluttering Discharge Goals Goal(s): Decrease discomfort, Improve function Activity Recommendations Activity Limitations: resume your previous activity . Instructions / Follow-Up Instructions / Follow-Up Can followup with PCP in about 1 week. Stress test was negative which essentially rules out coronary artery disease. Cardiac markers are also negative. will hold off follow up with cardiology unless symptoms recur. Heart monitoring did not show any abnormal or weird rhythm during your stay. May consider outpatient monitor if symptoms recur. Cardiology agrees with the game plan. Current Hospital Diet Patient's current hospital diet: Regular Diet Discharge Diet Recommended Diet: Regular Diet Pending Studies Studies pending at discharge: no Laboratory Results Hemoglobin A1c Test 05/06/17 04:37 Range/Units Estimated Average Glucose 114 mg/dl Hemoglobin A1c 5.6 4.5-5.6 % Lipid Panel Test 05/05/17 09:00 Range/Units Triglycerides Level 98 0-150 mg/dl Cholesterol Level 254 H 0-200 mg/dl HDL Cholesterol 94 mg/dl Cholesterol/HDL Ratio 2.7 LDL Cholesterol, Calculated 140 mg/dl Medical Emergencies . Who to Call and When: Medical Emergencies: If at any time you feel your situation is an emergency, please call 911 immediately. . Non-Emergent Contact Non-Emergency issues call your: Primary Care Provider Call Non-Emergent contact if: you have any medication questions . . "Provider Documentation" section prepared by Scar Mars. .
[2017-05-06 12:08] VITALS: BP 159/92; PULSE 86; TEMP 37; O2SAT 98
--- NOTE | 2017-05-06 12:08 | Discharge Summary ---
Discharge Summary Date of Service May 06, 2017. Discharge Summary Admission Date: May 05, 2017 at 11:17 Discharge Date: May 06, 2017 Discharge Disposition: Home Principal Diagnosis: Chest pain Problems/Secondary Diagnoses: As noted below Procedures: STress Echo Medication Reconciliation New Medications: Aspirin (Aspirin) 81 Mg Chw 1 TAB PO DAILY for 90 Days, #90 TAB 3 Refills Metoprolol Tartrate (Lopressor) 25 Mg Tab 25 MG PO BID for 90 Days, #180 TAB 1 Refill Continued Medications: Cyclosporine (Ophth) (Restasis) 0.05 % Emu 1 DROP OP DAILY Discharge Exam Review of Systems Constitutional: No fever, No weight loss, No weakness Respiratory: No cough, No wheezing, No shortness of breath, No dyspnea on exertion Cardiac: + see HPI, + chest pain, + palpitations, No orthopnea, No PND, No edema Abdomen: No pain, No nausea, No vomiting, No diarrhea, No GI bleeding Female : No problem reported Neurologic: No paralysis, No weakness, No numbness/tingling, No balance problems Heme: No abnormal bleeding/bruising, No clotting problems Endo: No fatigue Skin: No problem reported All Other Systems: Reviewed and Negative Physical Exam: General Appearance: WD/WN, no apparent distress Eyes: normal inspection ENT: normal ENT inspection Neck: supple, no adenopathy Respiratory/Chest: chest non-tender, lungs clear Cardiovascular: regular rate, rhythm, no edema Abdomen / GI: normal bowel sounds, non tender, soft Extremities: normal inspection Neurologic/Psychiatric: alert, oriented x 3 Skin: normal color Lymphatic: no adenopathy Hospital Course 66-year-old female with history of recent travel, presented to the ED with 2 days history of fluttering/chest tightness and abnormal EKG at her primary care physician office. 1. Chest discomfort: Patient has an atypical presentation for CAF. Trended cardiac markers, serial EKGs. Stress test was negative. 2. Fluttering: This could have been an arrhythmia or just some other sensation , so far she has not had any arrhythmia identified but the symptoms have not recurred. No significant events while in hospital. 3. Hypertension: added betablocker. will recommend monitoring as outpatient. Total Time Spent: Greater than 30 minutes This includes examination of the patient, discharge planning, medication reconciliation, and communication with other providers. Discharge Instructions Please refer to the electronic Patient Visit Report (Discharge Instructions) for additional information. Follow-Up as noted on discharge instructions Additional Copies To Pao Espinal C.R.N.P.
== END 2017-05-06 12:45 | disposition home or self-care (01) ==
LOC: EDBD 09:09 → C.EDA 09:10 → C.2T 11:17 → ENRESERV 11:37
PROVIDERS: ADMIT Internal Medicine; ATTEND Internal Medicine
DX: R07.9 Chest pain, unspecified (principal); I10 Essential (primary) hypertension; Z90.710 Acquired absence of both cervix and uterus; Z79.82 Long term (current) use of aspirin; Z79.899 Other long term (current) drug therapy; Z82.49 Family history of ischemic heart disease and other diseases of the circulatory system

== ENCOUNTER → 2017-06-19 | Outpatient (CLI) | payer OTHER ==
[~2017-06-19] MED LIST: ASPI81CH2 PO; CYCL0.052 OP; LPR25 PO
--- NOTE | 2017-06-20 09:44 | MAMMOGRAPHY REPORT ---
BILATERAL DIGITAL SCREENING MAMMOGRAM TOMOSYNTHESIS WITH CAD: 06/19/2017 CLINICAL HISTORY: Routine screening. Patient has no complaints. TECHNIQUE: Breast tomosynthesis in addition to standard 2D mammography was performed. Current study was also evaluated with a Computer Aided Detection (CAD) system. COMPARISON: Comparison is made to exams dated: 06/17/2016 mammogram, 06/13/2015 mammogram, 06/08/2014 m ammogram, 06/04/2013 mammogram, 05/27/2012 mammogram, and 05/27/2011 ultrasound - [facility] nter. BREAST COMPOSITION: The tissue of both breasts is heterogeneously dense, which may obscure small mas ses. FINDINGS: No suspicious masses, calcifications, or areas of architectural distortion are noted in ei ther breast. There has been no significant interval change compared to prior exams. Bilateral benign -appearing calcifications are not significantly changed, including faint clusters of calcifications w ithin the right superior breast on the MLO view which do not appear significantly changed dating back to the 2009 and 2008 exams. IMPRESSION: ACR BI-RADS CATEGORY 2: BENIGN There is no mammographic evidence of malignancy. A 1 year screening mammogram is recommended. The pa tient will receive written notification of the results. Approximately 10% of breast cancers are not detected with mammography. A negative mammographic report should not delay biopsy if a clinically suggestive mass is present. Lindsay Cardona M.D. /:06/19/2017 07:39:02 Clod Puller: Alem MEDINA)([place]), [facility] letter sent: Normal 1/2 BI-RADS Code: ACR BI-RADS Category 2: Benign
== END | disposition home or self-care (01) ==
LOC: C.MAMM 07:09
PROVIDERS: ATTEND Family Medicine
DX: Z12.31 Encounter for screening mammogram for malignant neoplasm of breast (principal)

== ENCOUNTER 2022-06-17 06:24 | Observation (INO) ==
--- NOTE | 2022-04-29 10:51 | PAT Medication Instructions ---
Medication Instructions Date of Service April 29, 2022 Home Medications Medication List: Juice Plus 1 cap PO BID calcium carbonate 600 mg calcium (1,500 mg) tablet (Calcium) 600 mg PO HS cholecalciferol (vitamin D3) 50 mcg (2,000 unit) tablet (Vitamin D3) 50 mcg PO QAM cyanocobalamin (vitamin B-12) 1,000 mcg tablet (Vitamin B-12) 1,000 mcg PO QAM cyclosporine 0.05 % eye drops in a dropperette (Restasis) 1 drp ophthalmic (eye) Q12H metoprolol tartrate 25 mg tablet 25 mg PO BID ltgonand-veq-woffsk 5 mg-zeaxanth 1 mg-bilberry 7.5 mg-herbal capsule (Macular Health Formula) 1 cap PO QAM red yeast rice 600 mg capsule 600 mg PO BID gabapentin 300 mg capsule 300 mg PO BID Continue as directed cyclosporine 0.05 % eye drops in a dropperette (Restasis) 1 drp ophthalmic (eye) Q12H STOP taking 2 weeks before surgery qrattdtu-oea-tyszfe 5 mg-zeaxanth 1 mg-bilberry 7.5 mg-herbal capsule (Macular Health Formula) 1 cap PO QAM red yeast rice 600 mg capsule 600 mg PO BID Juice Plus 1 cap PO BID DO NOT take the morning of surgery cholecalciferol (vitamin D3) 50 mcg (2,000 unit) tablet (Vitamin D3) 50 mcg PO QAM cyanocobalamin (vitamin B-12) 1,000 mcg tablet (Vitamin B-12) 1,000 mcg PO QAM Take morning of surgery With a small sip of water, OTHERWISE NOTHING TO EAT OR DRINK AFTER MIDNIGHT: metoprolol tartrate 25 mg tablet 25 mg PO BID gabapentin 300 mg capsule 300 mg PO BID Take evening before surgery metoprolol tartrate 25 mg tablet 25 mg PO BID gabapentin 300 mg capsule 300 mg PO BID calcium carbonate 600 mg calcium (1,500 mg) tablet (Calcium) 600 mg PO HS Other Notes If you have any questions please call us at [phone] or [phone] or [phone] or [phone]
--- NOTE | 2022-05-06 10:43 | Anesthesiology Consultation ---
Date of Service May 06, 2022 Assessment & Plan (1) Encounter for pre-operative examination: Chart Review Chart Review: Acceptable Risk for Surgery and Patient seen in Pre Admission Testing Pt currently scheduled as 23 hours observation. If surgeon decides to change patient to Same Day Joint, patient would be acceptable risk for MEGAN, pending patient is motivated, has good support and surgeon's office completes Same Day Joint Program preop requirements. Per PAT appt on 05/06/22, patient will be traveling to [place] 05/25/22-05/30/22. Pt is vaccinated for Covid. Will leave to surgeon's discretion if preop Covid testing needed. Educated on importance of using Covid precautions one week prior to surgery Teaching & Discussion Pre-Anesthesia Teaching/Discussion Notes: Instructed NPO after midnight before surgery,except medications with 15 cc of water. Medication instructions provided according to the PAT guidelines. History Surgery Operation Date: 06/17/22 07:00 Proposed Procedures p Left Total Hip Arthroplasty - Benjamin Cristobal MD Height/Weight Height: 5 ft 4 in Weight: 63 kg Allergies Allergy/AdvReac Type Severity Reaction Status Date / Time morphine AdvReac Mild Vomiting Verified 04/29/22 09:07 Medications Home Medications Medication Instructions Recorded Confirmed Last Taken Juice Plus 1 cap PO BID 04/22/19 04/29/22 07/11/19 calcium carbonate 600 mg calcium 600 mg PO HS 04/22/19 04/29/22 07/11/19 (1,500 mg) tablet (Calcium) cholecalciferol (vitamin D3) 50 50 mcg PO QAM 04/22/19 04/29/22 07/11/19 mcg (2,000 unit) tablet (Vitamin D3) cyanocobalamin (vitamin B-12) 1,000 mcg PO QAM 04/22/19 04/29/22 07/11/19 1,000 mcg tablet (Vitamin B-12) cyclosporine 0.05 % eye drops in a 1 drp ophthalmic (eye) Q12H 04/22/19 04/29/22 07/11/19 dropperette (Restasis) metoprolol tartrate 25 mg tablet 25 mg PO BID 04/22/19 04/29/22 07/12/19 06:00 prdyuabk-[id number]-zkjraw 5 mg-zeaxanth 1 cap PO QAM 04/22/19 04/29/22 07/11/19 1 mg-bilberry 7.5 mg-herbal capsule ([facility] Formula) red yeast rice 600 mg capsule 600 mg PO BID 07/10/21 04/29/22 Unknown gabapentin 300 mg capsule 300 mg PO BID 04/29/22 04/29/22 Unknown Wheeled Walker #1 ea 05/06/22 05/06/22 Unknown Past Medical History Medical History (Updated 05/07/22 @ 09:38 by Elisa Ayers PA-C) Asthma Minimal- no inhalers needed Borderline high blood pressure Spondylisthesis 10/2021 MRI included (See testing) Exercise / Class Metabolic Activity II 4-5 Yardwork/Stairs/Walk up hill (one flight of stairs - no chest pain or SOB ) Past Family History Family History Father Family hx colonic polyps Other No family history of adverse response to anesthesia Past Surgical History Surgical History History of cardiac cath 2018 - [facility] - CP - NO STENTS/ANGIOPLASTY History of colonoscopy with polypectomy History of hysterectomy History of left cataract extraction History of right cataract surgery History of tooth extraction Nausea and vomiting after administration of anesthetic agent Past Anesthesia History No Hx of Anesthesia Complications (with exception to PONV) and No Family Hx of Anesthesia Complications History of PONV History of PONV (improved with pre medication with IV anti nausea medication) and Hx of Motion Sickness (more so vertigo ) Social History Smoking Status: Never smoker Do You Dip or Chew Tobacco: No Hx Alcohol Use: Yes Alcohol type: wine alcohol intake frequency: a few times a week Hx Substance Use: No substance use type: does not use Review of Systems Occ reflux- OTC antacids Hx of snoring - no sleep study Patient denies chest pain, shortness of breath, dyspnea on exertion, cough, wheezing, palpitations. No hx of seizures, stroke, OR,. No hx of blood clots or blood transfusions Physical Exam Vital Signs VITALS BP 125/81 P 68 TEMP 98.4 SP02 97% RESP 16 Constitutional no acute distress ENMT Mouth: no TMJ clicking Thyromental Distance: > or= 3.5 Finger Breadths (3.5) Mallampati Class: II Neck neck extension not limited Respiratory normal respiratory effort; no respiratory distress Auscultation: lungs clear to auscultation bilaterally; no wheezes Cardiovascular Rate/Rhythm: regular rate and regular rhythm Heart Sounds: + murmur (I-II/ murmur ) Vessels: no carotid bruit Mild murmur- stress ECHO from 2018 showed mild to moderate MR, mild TR Musculoskeletal Spine: no pain with cervical ROM Extremities: extremities normal to inspection Psychiatric Orientation: alert Lab Results Anesthesia Preop Results Results Anesthesia Widget: WBC 7.46 K/ul (4.8-10.8) 05/06/22 Hgb 13.0 g/dl (12.0-16.0) 05/06/22 Hct 38.2 % (37.0-47.0) 05/06/22 Plt 412 K/uL (130-400) H 05/06/22 Na 138 mmol/L (136-145) 05/06/22 K 3.9 mmol/L (3.5-5.1) 05/06/22 Cl 102 mmol/L (98-107) 05/06/22 CO2 32 mmol/L (21-32) 05/06/22 BUN 15 mg/dl (6-23) 05/06/22 Creat 0.66 mg/dl (0.6-1.2) 05/06/22 Glucose Level 118 mg/dl (70-99(Fasting)) H 05/06/22 PT 10.4 Seconds (9.0-12.0) 05/06/22 PTT 26.7 Seconds (21.0-31.0) 05/06/22 INR 1.0 (0.9-1.1) 05/06/22 Blood Type O Positive 05/06/22 Antibody Screen NEGATIVE 05/06/22 Testing Electrocardiogram Date: 05/06/22 Findings: + NSR @ (61bpm ) Left axis deviation Incomplete right bundle branch block Anterior infarct (cited on or before May 05, 2017) When compared to EKG from May 05, 2017questionable change in initial forces of septal leads per cardiology Chest X-Ray Date: 05/06/22 Findings: + NAD FINDINGS: PA and lateral chest radiographs are compared to study dated 05/05/2017. The heart is mildly enlarged noting atherosclerotic calcification of the thoracic aorta. The pulmonary vasculature is noncongested. Chronic interstitial thickening similar to previous. The lungs and pleural spaces are clear. There is no pneumothorax. The skeletal structures are osteopenic. The bony thorax appears intact. Stress Test Date: 05/06/17 Type: exercise (Stress ECHO) Resting EF: 65-70% Resting LV Function: normal Normal exercise ECHO without evidence of inducible ischemia. MPHR 92%. 10.10 METS achieved. Grade II diastolic dysfunction. Mild to moderate MR. Mild TR Cardiac Catheterization Date: 12/19/17 LM -angiographically normal. LAD -moderate caliber vessel with mid segment luminal irregularities and myocardial bridging. No significant disease as wraps around the apex. Circumflex -large caliber vessel without significant disease. RCA -dominant, large caliber vessel without disease "Essentially normal coronary arteries" Other Testing Lumbar Spine MRI 11/01/21= Large L1-L2 disc extrusion results in mild central canal and right neural foraminal narrowing with at least moderate right lateral recess stenosis. Chronic L5 pars defects with 1.2 cm anterolisthesis. There is severe bilateral neural foraminal narrowing at L5-S1. Additional discogenic degeneration with facet arthrosis. No acute fracture or significant bone marrow edema. No abnormal enhancement. COVID-19 Risk Screen Screening Information COVID-19 Screen Date: 05/06/22 Exposure 21 Days Family/Household +COVID Last 21 Days: No Exposure 10 Days Any COVID Exposure Last 10 Days: No Symptoms Last 10 Days Experienced COVID Sx Last 10 Days: No + COVID 0-90 Days COVID + in Last 0-90 Days: No
--- NOTE | 2022-06-14 13:58 | History and Physical Report ---
DATE OF ADMISSION: 06/17/2022 CHIEF COMPLAINT: Persistent left hip pain and discomfort. HISTORY OF PRESENT ILLNESS: The patient is a 71-year-old female who presents on referral from __ __ for surgical treatment of her left hip. She has got a year history of progressively increasing le ft hip pain and discomfort. She had an intra-articular injection before she went on a trip, which he lped her for a day or two and that is about it. Pain has continued to bother her. She did see pain clinic and Dr. Mooney had done an injection on her back, which did not help at all. She describes letitia in and thigh pain. It hurts her all the time. The more she walks on it, the more she limps and the more it hurts. She would like to have her hip fixed. PAST MEDICAL HISTORY: Significant for: 1. Asthma. 2. Hypertension. 3. Spondylolisthesis. PAST SURGICAL HISTORY: 1. Cardiac catheterization with a negative workup, thought to be secondary to anxiety. 2. Hysterectomy. 3. Cataract surgery. 4. Oral surgery. ALLERGIES: MORPHINE, WHICH CAUSES NAUSEA. CURRENT MEDICATIONS: Include: 1. Calcium. 2. Vitamin D3. 3. Vitamin B12. 4. Restasis. 5. Gabapentin. 6. Metoprolol. 7. Red yeast. 8. Wheeled walker. SOCIAL HISTORY: Significant for a 71-year-old female. She does not smoke. No significant alcohol i ntake. FAMILY HISTORY: Noncontributory. REVIEW OF SYSTEMS: Negative for diabetes. She does have a history of chest pain, but a negative wor kup and felt to be related to anxiety. No bleeding problems. No history of DVT or PE. PHYSICAL EXAMINATION: GENERAL: Shows a pleasant, middle-aged female. HEENT: Benign. NECK: Supple. No lymphadenopathy. LUNGS: Clear to auscultation. HEART: Regular rate and rhythm. ABDOMEN: Soft, nontender, nondistended. EXTREMITIES: Grossly neurovascularly intact except as follows: Examination of the left hip revealed the patient walks with a slightly antalgic gait. Leg lengths are equal. She does have pain and sti ffness with hip motion. Internal rotation to neutral at best. This re-creates pain. Negative strai ght leg raise. No knee effusion. X-RAYS: X-rays of the left hip were reviewed. It shows advanced left hip arthritis. She has got co mplete loss of the joint space, fairly mild osteophyte formation. She has got cystic changes on both sides of the joint. ASSESSMENT: A 71-year-old female with bilateral hip degenerative joint disease, the left side quite a bit worse than the right. She has failed conservative care. She would like to have her hip fixed. PLAN: We are going to take her to the operating room and do left total hip replacement. The risks a nd benefits of this procedure were explained to the patient and include but not limited to DVT, PE, d eath, infection, neurological injury, vascular injury, bleeding problem, pain, limited range of motio n, stiffness, failure to relieve her symptoms, incomplete relief of symptoms, etc. The patient under stands and desires to proceed. Informed consent was obtained. As far as discharge plans, she is planning to be discharged to home using [facility] progr am. Her daughter who is an occupational therapist, I believe, is going to assist in her care. We wi ll plan on aspirin for DVT prophylaxis along with TEDs and SCDs. Job ID: [id number]
[~2022-06-17 06:24] MED LIST changes: +ACETAMINOPHEN 500 MG TAB PO SCH; -ASPI81CH2 PO; -CYCL0.052 OP; +CeleBREX 200 MG CAP PO SCH; +FAMOTIDINE 20 MG TAB PO SCH; -LPR25 PO; +LR 500ML BOLUS, THEN 15ML/HR IV SCH; +LR 60ML/HR IV SCH; +METOCLOPRAMIDE HCL 10 MG TABLET PO SCH; +Scopolamine 1 MG TDSY TD SCH; +TRANEXAMIC ACID 1,000 MG **IV Pre-op IV SCH; +ceFAZolin 2000MG 2,000 MG/15 ML SYR IV SCH; +dexAMETHasone**PF** 10 MG/ML VIAL IV SCH
[2022-06-17] MEDS ORDERED: BUPIVACAINE 0.5 % 5 MG/1 ML PF 10ML VIAL ONE (06:33)
--- NOTE | 2022-06-17 06:56 | History & Physical Bridge Note ---
Date of Service June 17, 2022 History & Physical Bridge Note I have examined the patient, reviewed the History & Physical and in the interval since the performance of the History & Physical I have noted the following changes of clinical significance: no changes noted
[2022-06-17] MEDS ORDERED: MoRPHine SULFATE PF 1 MG/ML 10 ML AMP/VIAL ONE (07:33)
[2022-06-17] MEDS ORDERED: LIDOCAINE 2% MPF LOCAL 5 ML VIAL ONE (07:33)
[2022-06-17] MEDS ORDERED: PROPOFOL IV EMULSION 10 MG/ML 20 ML VIAL IV ONE (07:33)
[2022-06-17] MEDS ORDERED: MIDAZOLAM HCL 1 MG/ML 2ML VIAL ONE ×2 (07:33→11:39)
[2022-06-17] MEDS ORDERED: fentaNYL citrate PF 100 MCG/2 ML VIAL ONE (07:33)
[2022-06-17] MEDS ORDERED: fentaNYL citrate PF 100 MCG/2 ML VIAL IV PRN (08:04)
[2022-06-17] MEDS ORDERED: ONDANSETRON INJ 2 MG/ML 2 ML VIAL IV PRN ×2 (08:04→11:35)
[2022-06-17] MEDS ORDERED: ATROPINE SULFATE 0.1 MG/ML 10ML SYR IV PRN (08:04)
[2022-06-17] MEDS ORDERED: ePHEDrine sulfate 50 MG/ML AMP IV PRN (08:04)
[2022-06-17] MEDS ORDERED: BUPIVACAINE/EPINEPHRINE 0.5% MPF 1:200,000 30 ML VIAL ONE (08:32)
[2022-06-17] MEDS ORDERED: ONDANSETRON INJ 2 MG/ML 2 ML VIAL ONE (09:06)
[2022-06-17] MEDS ORDERED: ePHEDrine sulfate 50 MG/ML AMP ONE (09:39)
--- NOTE | 2022-06-17 10:17 | Operative Report ---
PG Post Operative Report Pre & Post Diagnosis Operation Date: 06/17/22 08:50 Pre-Op Diagnosis: Left Hip Degenerative Joint Disease Post-Op Diagnosis: Left Hip Degenerative Joint Disease I identified the patient and participated in the time-out.: Yes Procedure Operation Date: 06/17/22 08:50 Actual Procedures p Left Total Hip Arthroplasty(Left) - Benjamin Cristobal MD Surgeon Benjamin Cristobal MD Paraffin Plant Sweater Operator Tavo Colmenares PA-C Estimated Blood Loss 150 Findings Consistent with Post-Op Diagnosis Operative findings were advanced left hip DJD. She had grade 4 [id number]-[id number] disease of the femoral head and acetabulum. Pretty significant hip joint effusion and some significant synovitis. Specimens Left femoral head sent for pathology Anesthesia Type Spinal MAC Complications none Disposition Accompanied Patient To Recovery: No Indications Patient 71-year-old fairly active female has had a year history of gradual progressive increasing left hip pain and discomfort. She been through extensive conservative care which became less successful over time. X-rays show advanced left hip arthritis. She elected proceed with total hip arthroplasty. Description of Procedure Operative implants consist of: 1. Biomet G7 size 54 mm acetabular shell. 2. 6.5 cancellous acetabular screws 1 of 35 mm in length and 125 mm length. 3. [place] eliminator. 4. Highly cross-linked polyethylene liner with a 54 mm outer diam and 36 mm inner diameter. 5. DePuy Corail size 11 KLA femoral stem. 6. +5/36 mm ceramic articular ball. The patient was taken to the operating, identified, placed on the operating table supine position protectors were properly padded. IV antibiotics tried by anesthesia team. A spinal anesthetic had been implemented holding area. Wei catheter was placed in sterile fashion. Patient was then placed in the right lateral decubitus position. An axillary roll was placed. A Stulberg hip positioner was used for positioning. Left hip and leg were then prepped and draped in usual sterile fashion. A posterolateral approach to the left hip was then performed to a curvilinear incision centered over the greater trochanter. Sharp dissection carried through subcutaneous tissue down to level the IT band and gluteal fascia the IT band gluteal fascia were incised longitudinally in line with skin incision. The underlying greater bursa was excised. The piriformis and external rotators along with the posterior hip joint capsule were then released from the posterior aspect the hip as a single layer. Great care was taken throughout the procedure protect the sciatic nerve at all times. The hip was internally rotated and dislocated. A femoral neck osteotomy cut was made with Final Cut about 8 mm above the lesser trochanter. Femoral head was removed and sent for pathology. The femur was retracted anteriorly. Attention drawn the acetabulum. The acetabular labrum was excised. Pulmonary fat was excised. Sequential reaming the acetabular was then performed again with size 45 and progressing up to 53. We did ream a little bit with a 54 reamer and then placed a 54 mm shell in about 40 degrees of lateral opening and 20 degrees of anteversion. It was fixed with two 6.5 cancellous acetabular screws. Some small anterior acetabular osteophytes were removed. A trial liner was placed. Attention drawn the femur. The proximal femur was entered with a Fly Fishing Hunter cutter followed by canal finder. Then broached beginning with a size 8 and progressing up to 11. Got excellent fit 11. We trialed the hip and the +5 articular ball provided full stability in full extension and external rotation and flexion to 90 degrees internal Tatian over 50 degrees. Soft tissue tension seemed appropriate. Leg length seemed pretty equal. She may be just a little bit long on this side but she is got significant arthritis in the other side. We elect to place these implants. All trial implants were removed. [place] eliminator was placed but highly cross- linked polyethylene liner was placed. A size 11 KLA femoral stem was impacted in position. +5/36 mm ceramic articular ball was placed. Hip was located and once again found to be stable. Attention drawn to closing. The wounds irrigated cosigns pulsatile lavage solution. I did inject locally with 60 cc of half percent Marcaine with epinephrine. The posterior capsule and external rotators were then repaired through drill holes in the posterior trochanter with #2 Tycron suture as a single layer. The IT band gluteal fascia then closed in 1 PDS suture running fashion for subcutaneous tissues then closed with 2 Dexon suture in a buried interrupted fashion. Skin was closed skin alden. Leg was then cleaned and dried and sterile dressed with Xeroform, 4 fours, ABD pad, foam tape was applied. The patient then transferred to the recovery room in stable condition. Patient tolerated procedure well and there were no complications. Tavo Colmenares, my physician web production assistant, was present for the entire procedure. His assistance was essential and required for appropriate patient positioning, prepping and draping, surgical exposure, performing the technical details of the operation, placement the implants, closure of the wound, and placement of the sterile bandage. I attest to the content of the Intraoperative Record and any orders documented therein. Any exceptions are noted below.
--- NOTE | 2022-06-17 11:02 | XRay Report ---
XR hip 1V LT w pelvis CLINICAL HISTORY: Postoperative evaluation. COMPARISON: Left hip radiographs March 04, 2022. FINDINGS: Alignment of the total left hip arthroplasty is anatomic. There is no periprosthetic fract ure. No unexpected radiopaque foreign bodies are present. There are skin alden. Right hip osteoarth ritis is noted. IMPRESSION: Expected findings following total left hip arthroplasty. ACT 112: Negative or not required by law. Electronically signed by: Duke Washburn M.D. 06/17/2022 11:00 AM
--- NOTE | 2022-06-17 11:04 | Anesthesiology Progress Note ---
Date of Service June 17, 2022 Anesthesia Post Procedure Vital Signs Vital Signs: Temp Pulse Pulse Resp BP BP Pulse Ox 06/17/22 10:40 66 18 124/67 94 06/17/22 10:30 67 17 118/62 95 06/17/22 11:00 63 14 120/72 94 06/17/22 10:50 65 16 124/66 93 06/17/22 10:20 70 20 105/63 96 06/17/22 10:11 96.8 F L 73 16 118/66 99 06/17/22 07:09 97.9 F 61 20 183/96 H 99 O2 Del Method 06/17/22 10:40 Room Air 06/17/22 10:30 Room Air 06/17/22 11:00 Room Air 06/17/22 10:50 Room Air 06/17/22 10:20 Room Air 06/17/22 10:11 Room Air 06/17/22 07:09 Room Air Pain Intensity Left Hip: Pain Intensity: 2 Transfer of Care Handoff Completed per policy Notes Mental Status: alert / awake / arousable and participated in evaluation Patient Amnestic to Procedure: Yes Nausea / Vomiting: adequately controlled Pain: adequately controlled Airway Patency, RR, SpO2: stable & adequate BP & HR: stable & adequate Hydration State: stable & adequate Neuraxial Anesthesia: was administered and sensory block is resolving Anesthetic Complications: no major complications apparent and Pt Satisfied with anesthetic care
[2022-06-17] MEDS ORDERED: METOCLOPRAMIDE HCL INJ 5 MG/ML 2 ML VIAL IV PRN (11:35)
[2022-06-17] MEDS ORDERED: ALUMINUM/MAGNESIUM SUSP 30 ML UDC PO PRN (11:35)
[2022-06-17] MEDS ORDERED: MAGNESIUM HYDROXIDE SUSP 30 ML UDC PO PRN (11:35)
[2022-06-17] MEDS ORDERED: bisacodyL 10 MG SUPP PR PRN (11:35)
[2022-06-17] MEDS ORDERED: HYDROmorphone INJ 0.5 MG/0.5 ML SYR IV PRN (11:35)
[2022-06-17] MEDS ORDERED: NALOXONE HCL 0.4 MG/1 ML VIAL/CARP IV PRN (11:35)
[2022-06-17] MEDS: SODIUM CHLORIDE 0.9% 1000ML 1,000 ML IV SCH ×2 (12:15→22:32)
[2022-06-17] MEDS: KETOROLAC TROMETHAMINE 15 MG/ML VIAL IV SCH ×2 (12:54→18:05)
[2022-06-17] MEDS ORDERED: ACETAMINOPHEN 500 MG TAB PO SCH (14:00)
[2022-06-17] MEDS: ACETAMINOPHEN 500 MG TAB PO SCH ×2 (14:21→21:27)
[2022-06-17] MEDS ORDERED: TRANEXAMIC ACID / 0.7% NACL 1,000 MG/100 ML BAG IV SCH (16:15)
[2022-06-17] MEDS: ceFAZolin 1000MG 1,000 MG/7.5 ML SYR IV SCH (16:18)
[2022-06-17] MEDS: Scopolamine CHECK PATCH PLACEMENT SCH (16:23)
[2022-06-17] MEDS: ASCORBIC ACID 500 MG TAB PO SCH (16:24)
[2022-06-17] MEDS ORDERED: SENNA 8.6 MG TAB PO SCH ×2 (21:00)
[2022-06-17] MEDS ORDERED: [UNRECOGNIZED DRUG - OTHER] PO SCH (21:00)
[2022-06-17] MEDS ORDERED: CALCIUM CARBONATE 1250MG TAB PO SCH (21:00)
[2022-06-17] MEDS: GABAPENTIN 300 MG CAP PO SCH (21:26)
[2022-06-17] MEDS: ASPIRIN 81 MG ECTAB PO SCH (21:26)
[2022-06-17] MEDS: DOCUSATE SODIUM 100 MG CAP PO SCH (21:26)
[2022-06-17] MEDS: METOPROLOL TARTRATE 25 MG TAB PO SCH (21:28)
[2022-06-17] MEDS: traMADol HCL 50 MG TABLET PO PRN (22:32)
[2022-06-18] MEDS: ceFAZolin 1000MG 1,000 MG/7.5 ML SYR IV SCH
[2022-06-18] MEDS: Scopolamine CHECK PATCH PLACEMENT SCH ×2 (00:01→08:02)
[2022-06-18] MEDS: KETOROLAC TROMETHAMINE 15 MG/ML VIAL IV SCH ×3 (00:01→12:17)
[2022-06-18] MEDS: ACETAMINOPHEN 500 MG TAB PO SCH (05:53)
[2022-06-18 06:17] LABS: Basophils # (auto) 0.03 K/uL (0-0.2); Basophils % (auto) 0.4 %; Eosinophils # (auto) 0.01 K/uL (0-0.50); Eosinophils % (auto) 0.1 %; Hematocrit (blood only) 27.1 % (37.0-47.0); Hemoglobin 9.1 g/dl (12.0-16.0); Immature Granulocytes # (auto) 0.03 K/uL (0.01-0.20); Immature Granulocytes % (auto) 0.4 %; Lymphocytes # (auto) 2.44 K/uL (1.2-3.4); Lymphocytes % (auto) 28.6 %; Mean Corpuscular Hemoglobin 29.9 pg (25.0-34.0); Mean Corpuscular Hgb Conc 33.6 g/dL (32.0-36.0); Mean Corpuscular Volume 89.1 fL (80.0-100.0); Mean Platelet Volume 9.5 fL (9.4-12.4); Monocytes # (auto) 0.79 K/uL (0.11-0.59); Monocytes % (auto) 9.3 %; Neutrophils # (auto) 5.24 K/uL (1.40-6.50); Neutrophils % (auto) 61.2 %; Platelet Count 315 K/uL (130-400); RDW Coefficient of Variation 12.3 % (11.5-14.5); RDW Standard Deviation 39.8 fL (36.4-46.3); Red Blood Count 3.04 M/uL (4.20-5.40); White Blood Count 8.54 K/ul (4.8-10.8)
[2022-06-18 06:29] LABS: BUN Creatinine Ratio 18.3 (10-20); Calcium 8.9 mg/dl (8.6-10.3); Creatinine Clr Calc Pharmacy 61.8 ml/min; Est GFR (African American) 98.6 ml/min; Est GFR (Non-African American) 85.1 ml/min; Potassium 4.4 mmol/L (3.5-5.1)
[2022-06-18] MEDS: traMADol HCL 50 MG TABLET PO PRN (07:58)
[2022-06-18] MEDS: ASCORBIC ACID 500 MG TAB PO SCH (07:59)
[2022-06-18] MEDS ORDERED: dexAMETHasone 10 MG in SYRINGE 0 ML IV SCH (08:00)
[2022-06-18] MEDS: METOPROLOL TARTRATE 25 MG TAB PO SCH (08:00)
[2022-06-18] MEDS: ASPIRIN 81 MG ECTAB PO SCH (08:01)
[2022-06-18] MEDS: DOCUSATE SODIUM 100 MG CAP PO SCH (08:01)
[2022-06-18] MEDS: GABAPENTIN 300 MG CAP PO SCH (08:01)
[2022-06-18] MEDS ORDERED: CHOLECALCIFEROL 1,000 UNITS 25 MCG TAB PO SCH (09:00)
[2022-06-18] MEDS ORDERED: CYANOCOBALAMIN (B-12) 500 MCG TABLET PO SCH (09:00)
[2022-06-18] MEDS ORDERED: NON-FORMULARY MEDICATION (Mv-Mn-Lutein-Zeax-Bilber-Hb277 [Macular Health Formula] 5-1-7.5 PO SCH (09:00)
[2022-06-18] MEDS ORDERED: MULTIVITAMIN TAB PO SCH (09:00)
--- NOTE | 2022-06-18 22:00 | Progress Notes ---
SUBJECTIVE: A 71-year-old female postoperative day 1 from a left hip replacement. She is currently doing great. She had some dizziness last night when she first got up and the first time this morning . She did go to therapy and did well with that. She is able to walk around for, go up and down some steps. She is hoping to go home. No chest pain or shortness of breath. Not feeling dizzy or light headed any longer. OBJECTIVE: VITAL SIGNS: Temperature is 36.5. Vital signs are stable. GENERAL: Shows a pleasant middle-aged female. She is sitting up in bed, looks comfortable. LUNGS: Clear to auscultation. HEART: Regular rate and rhythm. ABDOMEN: Soft, nontender, nondistended. EXTREMITIES: Grossly neurovascularly intact except as follows. Examination of the left hip reveals the dressing to be clean, dry and intact. Leg lengths were equal . Hip is located. She is neurologically intact. LABORATORY DATA: Hemoglobin 9.1, hematocrit 27.1. Electrolytes are stable. ASSESSMENT: A 71-year-old female postoperative day 1 from left hip replacement, doing well. She is a little bit hypotensive and dizzy earlier, but doing better now. Her pain is controlled. Hip is located. She is hoping to go home. PLAN: 1. DVT prophylaxis includes thigh-high TEDs, SCDs, and aspirin twice a day. 2. PT/OT, weightbear as tolerated. Left total hip protocol. 3. Pain control, doing okay with current pain regimen. 4. Disposition: Plan to discharge to home with some home health later today. Job ID: [id number]
== END 2022-06-18 13:27 | disposition home health service (06) ==
LOC: ASU 06:24 → 3E 06:24

== ENCOUNTER 2023-06-02 05:04 | Observation (INO) ==
--- NOTE | 2023-05-08 09:02 | PAT Medication Instructions ---
Medication Instructions Date of Service May 08, 2023 Home Medications Medication Instructions Recorded Fredy Villalobos #1 ea 05/06/22 acetaminophen 500 mg tablet 1,000 mg (2 x 500 mg) PO TID pain 06/15/22 (Tylenol Extra Strength) 30 days #180 tabs calcium carbonate 600 mg calcium (1,500 mg) tablet (Calcium) 600 mg PO HS cholecalciferol (vitamin D3) 50 mcg (2,000 unit) tablet (Vitamin D3) 50 mcg PO QAM cyanocobalamin (vitamin B-12) 1,000 mcg tablet (Vitamin B-12) 2,500 mcg PO QAM cyclosporine 0.05 % eye drops in a dropperette (Restasis) 1 drp ophthalmic (eye) Q12H metoprolol tartrate 25 mg tablet 25 mg PO BID [id number] 5 mg-zeaxanth 1 mg-bilberry 7.5 mg-herbal capsule (Macular Health Formula) 1 cap PO QAM acetaminophen 500 mg tablet (Tylenol Extra Strength) 1,000 mg (2 x 500 mg) PO TID Mushroom Blend 1 applic PO QAM omega-3 fatty acids-fish oil 684 mg-1,200 mg capsule,delayed release 1 cap PO QAM pravastatin 20 mg tablet 20 mg PO HS sennosides 8.6 mg tablet (Senokot) 8.6 mg PO BID PRN STOP taking 2 weeks before surgery (or as soon as possible if surgery is within 2 weeks) qqllsguf-[id number] 5 mg-zeaxanth 1 mg-bilberry 7.5 mg-herbal capsule (Macular H ealth Formula) 1 cap PO QAM Mushroom Blend 1 applic PO QAM omega-3 fatty acids-fish oil 684 mg-1,200 mg capsule,delayed release 1 cap PO QAM DO NOT take the morning of surgery cholecalciferol (vitamin D3) 50 mcg (2,000 unit) tablet (Vitamin D3) 50 mcg PO QAM cyanocobalamin (vitamin B-12) 1,000 mcg tablet (Vitamin B-12) 2,500 mcg PO QAM sennosides 8.6 mg tablet (Senokot) 8.6 mg PO BID PRN Take morning of surgery With a small sip of water, OTHERWISE NOTHING TO EAT OR DRINK AFTER MIDNIGHT: cyclosporine 0.05 % eye drops in a dropperette (Restasis) 1 drp ophthalmic (eye) Q12H metoprolol tartrate 25 mg tablet 25 mg PO BID acetaminophen 500 mg tablet (Tylenol Extra Strength) 1,000 mg (2 x 500 mg) PO TID Take evening before surgery calcium carbonate 600 mg calcium (1,500 mg) tablet (Calcium) 600 mg PO HS cyclosporine 0.05 % eye drops in a dropperette (Restasis) 1 drp ophthalmic (eye) Q12H metoprolol tartrate 25 mg tablet 25 mg PO BID acetaminophen 500 mg tablet (Tylenol Extra Strength) 1,000 mg (2 x 500 mg) PO TID pravastatin 20 mg tablet 20 mg PO HS sennosides 8.6 mg tablet (Senokot) 8.6 mg PO BID PRN(if needed) Other Notes If you have any questions please call us at [phone] or [phone] or [phone] or [phone]
--- NOTE | 2023-05-14 11:41 | Anesthesiology Consultation ---
Date of Service May 14, 2023 Assessment & Plan (1) Encounter for pre-operative examination: - Case discussed in detail with Dr. Lawrence who advised nothing additional is needed prior to surgery and agreed that patient is not a candidate for outpatient joint. - Outpatient joint assessment: Patient is currently scheduled for inpatient pathway. If re-evaluated and patient/surgeon requests outpatient pathway, patient is not recommended candidate for outpatient joint program from anesthesia standpoint. Chart Review Chart Review: Acceptable Risk for Surgery and Patient seen in Pre Admission Testing Teaching & Discussion Pre-Anesthesia Teaching/Discussion Notes: Instructed NPO after midnight before surgery, except medications with 15 cc of water. Medication instructions provided according to the PAT guidelines. History Surgery Operation Date: 06/02/23 10:10 Proposed Procedures p Right Anterior Total Hip Arthroplasty - Alexandro Zhou DO Height/Weight Height: 5 ft 4 in Weight: 62.1 kg Allergies Allergy/AdvReac Type Severity Reaction Status Date / Time morphine AdvReac Mild Vomiting Verified 05/05/23 11:42 Medications Home Medications Medication Instructions Recorded Confirmed Last Taken calcium carbonate 600 mg calcium 600 mg PO HS 04/22/19 05/05/23 06/10/22 20:00 (1,500 mg) tablet (Calcium) cholecalciferol (vitamin D3) 50 50 mcg PO QAM 04/22/19 05/05/23 06/10/22 20:00 mcg (2,000 unit) tablet (Vitamin D3) cyanocobalamin (vitamin B-12) 2,500 mcg PO QAM 04/22/19 05/05/23 06/10/22 20:00 1,000 mcg tablet (Vitamin B-12) cyclosporine 0.05 % eye drops in a 1 drp ophthalmic (eye) Q12H 04/22/19 05/05/23 06/17/22 05:30 dropperette (Restasis) metoprolol tartrate 25 mg tablet 25 mg PO BID 04/22/19 05/05/23 06/17/22 05:30 brrbibit-acu-moetfh 5 mg-zeaxanth 1 cap PO QAM 04/22/19 05/05/23 06/10/22 09:00 1 mg-bilberry 7.5 mg-herbal capsule (Macular Health Formula) Wheeldeandre Walker #1 ea 05/06/22 05/06/22 Unknown acetaminophen 500 mg tablet 1,000 mg (2 x 500 mg) PO TID pain 06/15/22 05/05/23 Unknown (Tylenol Extra Strength) 30 days #180 tabs Mushroom Blend 1 applic PO QAM 05/05/23 05/05/23 Unknown omega-3 fatty acids-fish oil 684 1 cap PO QAM 05/05/23 05/05/23 Unknown mg-1,200 mg capsule,delayed release pravastatin 20 mg tablet 20 mg PO HS 05/05/23 05/05/23 Unknown sennosides 8.6 mg tablet (Senokot) 8.6 mg PO BID PRN prevent 05/05/23 05/05/23 Unknown constipation Past Medical History Medical History (Updated 05/15/23 @ 08:59 by Re Burdick PA-C) Asthma Minimal- no inhalers needed DJD (degenerative joint disease) Dry eye syndrome History of anesthesia reaction (~2022) Syncopal when OOB post hip surg x 2; at home, intermittent presyncope as well, she feels it was overall related to being post-op; denies seeking evaluation per pt; denies additional presyncopal/syncopal episodes History of COVID-19 (~04/04/23) home test, resolved Hyperlipemia Hypertension controlled, stable per pt Spondylisthesis Patient denies h/o stroke, seizures, heart attack, heart failure, DM, blood clots/DVTs or blood transfusions. Exercise / Class Metabolic Activity II 4-5 Yardwork/Stairs/Walk up hill (denies chest discomfort or shortness of breath with 1 FOS) Past Family History Family History Father Family hx colonic polyps Other No family history of adverse response to anesthesia Past Surgical History Surgical History (Updated 05/14/23 @ 11:50 by Re Burdick PA-C) History of cardiac cath 2018 - [facility] - CP - no stents/angioplasty History of colonoscopy with polypectomy History of hysterectomy History of selective injection of anesthetic agent around lumbar nerve root (~06/2021) LESI History of tooth extraction History of total left hip arthroplasty (~06/21/22) Hx of bilateral cataract extraction Nausea and vomiting after administration of anesthetic agent denies needing scop patch Past Anesthesia History No Family Hx of Anesthesia Complications and Other (syncopal post-op MEGAN; see above) History of PONV No Hx of Motion Sickness and History of PONV (denies needing scop patch) Social History Smoking Status: Never smoker Do You Dip or Chew Tobacco: No Hx Alcohol Use: Yes Alcohol type: wine alcohol intake frequency: a few times a week Hx Substance Use: No substance use type: does not use Review of Systems Patient denies chest pain, shortness of breath, dyspnea on exertion, snoring, witnessed apneas, reflux, fever, chills, cough, wheezing, or palpitations. Physical Exam Vital Signs Vitals BP 130/84 P 64 TEMP 97.9 SP02 95% on RA RESP 18 Physical Patient resting comfortably in chair in no acute distress, alert and oriented, responding appropriately throughout visit Full cervical extension range of motion without pain TMD 3.5 finger breadths Mallampati Score 2 Dentition: intact, denies chipped or loose teeth, caps/crowns, implants or bridges Lungs: normal respiratory effort. Good air movement, clear throughout to auscultation, no adventitious breath sounds Cardiac: regular rate and rhythm, no murmurs noted Carotid arteries: negative bruit bilat Lab Results Anesthesia Preop Results Results Anesthesia Widget: WBC 6.86 K/ul (4.8-10.8) 05/14/23 Hgb 12.5 g/dl (12.0-16.0) 05/14/23 Hct 37.5 % (37.0-47.0) 05/14/23 Plt 375 K/uL (130-400) 05/14/23 Na 134 mmol/L (136-145) L 05/14/23 K 4.1 mmol/L (3.5-5.1) 05/14/23 Cl 99 mmol/L (98-107) 05/14/23 CO2 29 mmol/L (21-32) 05/14/23 BUN 11 mg/dl (6-23) 05/14/23 Creat 0.71 mg/dl (0.6-1.2) 05/14/23 Glucose Level 89 mg/dl (70-99(Fasting)) 05/14/23 PT 10.6 Seconds (9.0-12.0) 05/14/23 PTT 28 Seconds (21-31) 05/14/23 INR 1.0 (0.9-1.1) 05/14/23 Blood Type O Positive 05/14/23 Antibody Screen NEGATIVE 05/14/23 Testing Electrocardiogram Date: 05/14/23 Sinus bradycardia, rate 59 bpm Left axis deviation Incomplete RBBB Poor R wave progression, consider anterior AL vs lead placement vs LVH No significant change vs 05/06/22 EKG Chest X-Ray Date: 05/14/23 No active disease in the chest. Cardiac Catheterization Date: 12/19/17 LM -angiographically normal LAD -moderate caliber vessel with mid segment luminal irregularities and myocardial bridging. No significant disease as wraps around the apex. Circumflex -large caliber vessel without significant disease RCA -dominant, large caliber vessel without disease 1. Essentially normal coronary arteries 2. Normal intracardiac filling pressure
--- OUTSIDE RECORDS SUMMARY | 2023-06-02 05:35 | External Medical Summary | Continuity of Care Document ---
Author Name Unknown Organization [address] Address [address] [place] [address] JAC GYPSUMTRENTON [id number] Care Team Providers Care Manufacturing Baker Name Role Phone Pao Espinal Primary Care Physician [phone] [id number] Date(s): 05/23/23 - 05/23/[address] [facility] [address], [address] [place] [address] [place] [phone] Encounter Diagnosis Hyperlipidemia(Discharge Diagnosis) - 05/22/23 Elevated fasting glucose(Discharge Diagnosis) - 05/22/23 Body mass index [BMI] 23.0-23.9, adult(Discharge Diagnosis) - 05/23/23 Discharge Disposition: Home or Self Care Attending Physician: JOJO Espinal Shari A Referring Physician: JOJO Espinal Shari A Allergies, Adverse Reactions, Alerts Substance Reaction Severity Status morphine Vomiting Mild Active Pollen unknown Active Assessment and Plan Extracted from: Title:Office Visit Note Author:JOJO Espinal Sh ari A Date:05/23/23 1.Hyperlipidemia Chronic, goal stability or resolution, continue same. Obtain AST/ALT in 6 mos. F/U for CPE in Sep. 2.Elevated fasting glucose Chronic, goal resolution, normal A1c. Will continue to monitor. Time: 29mins, MDM moderate 5- pre-visit chart review 19- visit, inclusive of history, exam, and discussion of assessment/plan 5- post-visit documentation/orders/coordination of care Immunizations Given and Recorded Vaccine Date Status Refusal Reason SARS-CoV-2 mRNA (jillxaqukco-ykoq-vgt) 12/03/22 Re corded influenza virus vaccine, inactivated 11/29/22 Facundo rded influenza virus vaccine, inactivated 12/01/19 Facundo rded influenza virus vaccine, inactivated 01/02/19 Facundo rded SARS-CoV-2 (COVID-19) mRNA-1273 vaccine 05/29/21 R ecorded SARS-CoV-2 (COVID-19) mRNA-1273 vaccine 12/09/20 R ecorded SARS-CoV-2 (COVID-19) mRNA BNT-162b2 vax 11/29/20 Recorded SARS-CoV-2 (COVID-19) mRNA BNT-162b2 vax 05/06/20 Recorded SARS-CoV-2 (COVID-19) mRNA BNT-162b2 vax 05/06/20 Recorded SARS-CoV-2 (COVID-19) mRNA BNT-162b2 vax 04/10/20 Recorded SARS-CoV-2 (COVID-19) mRNA BNT-162b2 vax 04/10/20 Recorded pneumococcal 23-valent vaccine 08/23/19 Given pneumococcal 23-valent vaccine 05/03/11 Given zoster vaccine, inactivated 10/16/17 Given zoster vaccine, inactivated 1 07/18/17 Given tetanus/diphtheria/pertuss, acel (Tdap) 10/21/16 G iven tetanus/diphtheria/pertuss, acel (Tdap) 10/31/06 R ecorded pneumococcal 13-valent vaccine 07/26/15 Given zoster vaccine live 09/08/14 Given 1Result Comment: ADJUNCTIVE SUSPENSION COMPONENT LOT: [id number] EXO: 06/19/2019 Medications Calcium 600+D Start: 07/26/15 14:09:00, See Instructions, 1 po daily Start Date: 07/26/15 Status: Ordered docusate sodium 100 mg oral capsule Start: 04/19/22 10:56:00 EST, See Instructions, Disp# 60 cap, Refills: 3, TAKE 1 CAPSULE BY MOUTH TWICE A DAY NEEDED FOR CONSTIPATION, Pharmacy: [facility] Start Date: 04/19/22 Status: Ordered fluticasone 50 mcg/inh nasal spray Start: 04/19/22 10:56:00 EST, See Instructions, Disp# 48 mL, Refills: 1, USE 1 SPRAY IN EACH NOSTRIL DAILY, Pharmacy: [facility] Start Date: 04/19/22 Status: Ordered [facility] Start: 07/21/19 11:03:00 EDT, [facility] Start Date: 07/21/19 Status: Ordered Metoprolol Tartrate 25 mg oral tablet Start: 10/22/22 8:02:00 EDT, See Instructions, Disp# 180 tab, Refills: 3, TAKE 1 TABLET BY MOUTH TWICE A DAY, Pharmacy: [facility]/pharmacy #[id number] Start Date: 10/22/22 Status: Ordered Mushroom supplement Start: 05/22/23 8:58:00 EDT, Mushroom supplement Start Date: 05/22/23 Status: Ordered pravastatin 20 mg oral tablet Start: 03/06/23 16:06:00 EST, 1 tab, PO, qhs, Disp# 90 tab, Refills: 3, Pharmacy: [facility]/pharmacy #[id number] Start Date: 03/06/23 Status: Ordered Restasis 0.05% ophthalmic emulsion Start: 10/22/22 8:02:00 EDT, 1 drop, both eyes, q12h, Disp# 60 each, Refills: 3, Pharmacy: [facility]/pharmacy #[id number] Start Date: 10/22/22 Status: Ordered Vitamin B12 250 mcg oral tablet Start: 07/26/15 14:08:00, 1 tab, PO, Daily Start Date: 07/26/15 Status: Ordered Mental Status 05/23/23 Barriers to Learning one year None evide nt Mandatory Health Literacy Documentation Yes Health Literacy Communication Barriers N ever Primary Language French Problem List Condition Confirmation Course Effective Dates Status Health Status Informant ANXIETY Confirmed Active Arthritis Confirmed Active ASTHMA Confirmed Active Cholelithiasis Confirmed Active Breast mass Confirmed Active Cataract Confirmed Active Dysuria Confirmed Active FAMILY HISTORY OF OTHER SPECIFIED MALIGNANT NEOPLASM 1 Confirmed Active HEMORRHOIDS Confirmed Active HRT stopped Confirmed Active Elevated fasting glucose Confirmed Active Hyperlipidemia Confirmed Active HTN (hypertension) Confirmed Active Leg length discrepancy. 2 Confirmed Active Lumbar radiculopathy Confirmed Active Menopausal state Confirmed Active OA - Osteoarthritis of knee 3 Confirmed Active SK (seborrheic keratosis) Confirmed Active Solitary benign cyst of right breast 4 Confirmed Active Solitary sacroiliitis (disorder) Confirmed Active Spondylolisthesis of lumbar region Confirmed Active Tubular adenoma Confirmed Active 1bcc, parents 2right longer 3left 4fibroadenomatoid nodules Diagnosis Diagnosis Type Effective Dates Health Status Clinical Service Informant Hyperlipidemia Discharge Diagnosis 05/22/23 Elevated fasting glucose Discharge Diagnosis 05/22/23 Body mass index [BMI] 23.0-23.9, adult Discharge Diagnosis 3/29/24 Non-Specified Procedures Procedure Date Related Diagnosis Body Site Status Hip arthroplasty 1 06/17/22 Comple karen Arthroplasty of left hip 05/2022 Completed Colonoscopy 2, 3 11/16/19 Complete d Cataract surgery - Right 4 07/12/19 Completed Mammogram 5 07/09/19 Completed Cardiac catheterization 2019 C ompleted Mammogram 6 06/25/18 Completed Surgery 7 12/19/17 Completed Mammogram 8 06/19/17 Completed Echocardiogram 9 05/05/17 Complete d Mammogram - screening 10 06/17/16 Completed Colonoscopy 11 11/02/14 Completed Hysterectomy 1990 Completed colonoscopy 13 Completed dexa scan 14 Completed FNA - Fine needle aspiration 15 Completed 1total left hip arthroplasty 2impression: one 3 mm polyp in the cecum, removed with a cold biopsy forceps. resected and retrieved 3Repeat in 5 years. 4Right cataract phacoemulsification with intraocular lens implant (right) 5IMPRESSION: ACR BI-RADS CATEGORY 2: BENIGN There is no mammographic evidence of malignancy. A 1 year screening mammogram is recommended. (07/09/2020) 6IMPRESSION: ACR BI-RADS CATEGORY 2: BENIGN There is no mammographic evidence of malignancy. A one year screening is recommended. 7heart cath. Neg no blockages 8Impression: There is no mammographic evidence of malignancy. A 1 year screening mammogram is recommended 9diastolic dysfunction, Grade 2, consistent with elevated left atrial pressure There is mild to moderate mitral regurgitation Normal exercise echocardiogram without evidence of inducible ischemia. 10WNL - 1 yr 11tubular adenoma; repeat 5 years 12partial, ovaries intact 134/2005, 05/2007 141/2006 15right breast 04/1997 left breast 06/1998 Vital Signs Most recent to oldest [Reference Range]: 1 Height 163.4 cm (05/22/23 9:00 AM) Patient Weight 61.6 kg (05/22/23 9:00 AM) Body Mass Index 23.07 kg/m2 (05/22/23 9:00 AM) Temperature [36.5-37.9 DegC] 36.2 DegC *LOW* (05/22/23 9:00 AM) Heart Rate 58 bpm (05/22/23 9:00 AM) Respiratory Rate 16 br/min (05/22/23 9:00 AM) Blood Pressure 120/68mmHg (05/22/23 9:00 AM) Social History Social History Type Response Smoking Status Never smoked cigaret alverto Sex [facility] Outpt Note * JOJO Espinal Shari A: PERFORM, MODIFY, MODIFY, MODIFY Event Display: [facility] Outpt Note Authored Date: [id number] Chief Complaint follow up on medication- lab review History of Present Illness 72-year-old female here today for follow-up to hyperlipidemia changed from red yeast rice to pravastatin. Denies side effects, other than facial flushing with alcohol intake. Also found to have elevatedfasting glucoseon prior lab results. Had A1c 5.4%, was 5.2%. Improved FLP, see EMR.COVID in March. Resolved, no long term care administrator effects. Review of Systems Constitutional: No fever, No chills, No fatigue._ Respiratory: No shortness of breath, No cough, No wheezing. _ Cardiovascular: no lightheadedness/presyncope, No chest pain, No palpitations._ Gastrointestinal: No nausea, No vomiting, No diarrhea,+ constipation with cheese, no problem with smaller amount, No heartburn, No abdominal pain._ Musculoskeletal: No back pain, No neck pain,right hipjoint pain, being replaced a week from Friday,No muscle pain, No decreased range of motion, No trauma._ Skin: No rash, No pruritus, No breakdown. Sees Dermatology, on q2y plan. Neurologic: No abnormal balance, No numbness, No tingling, No headache._ Physical Exam Vitals & Measurements T:36.2C HR:58(Monitored) RR:16 BP:120/68 SpO2:98% HT:163.4cm WT:61.600kg(Dosing) WT:61.6kg BMI:23.07 PHQ2 Data(Data Documented on:05/23/2023 07:59) Emotional health assessment NEGATIVE General: _Alert and oriented, No acute distress HEENT: _ Normocephalic, atraumatic, EOMI, PERRLA+2, TM clear, Nl gross hearing, moist oral mucosa _ Neck: _ Supple, no lymphadenopathy or thyromegaly Cardiovascular: _Normal rate, Regular rhythm, No murmur, No gallop. Normal peripheral perfusion, No edema, Pulses +2 b/l. Respiratory: _Lungs are clear to auscultation, Respirations are non-labored, Breath sounds are equal Musculoskeletal: _Normal range of motion, normal strength. Neurologic: Normal sensory, Normal motor function, CN II-XII grossly intact. Integumentary: _Warm, Dry, [place]. Psych: Mood-affect congruence. Reports no SI/HI. Speech is of normal pace and content Assessment/Plan 1.Hyperlipidemia Chronic, goal stability or resolution, continue same. Obtain AST/ALT in 6 mos. F/U for CPE in Sep. 2.Elevated fasting glucose Chronic, goal resolution, normal A1c. Will continue to monitor. Time: 29mins, MDM moderate 5- pre-visit chart review 19- visit, inclusive of history, exam, and discussion of assessment/plan 5- post-visit documentation/orders/coordination of care Problem List/Past Medical History Ongoing ANXIETY Arthritis ASTHMA Breast mass Cataract Cholelithiasis Dysuria Elevated fasting glucose FAMILY HISTORY OF OTHER SPECIFIED MALIGNANT NEOPLASM HEMORRHOIDS HRT stopped HTN (hypertension) Hyperlipidemia Leg length discrepancy. Lumbar radiculopathy Menopausal state OA - Osteoarthritis of knee SK (seborrheic keratosis) Solitary benign cyst of right breast Solitary sacroiliitis (disorder) Spondylolisthesis of lumbar region Tubular adenoma Historical Acute sinusitis Acute UTI Sinus pressure Urinary urgency UTI Procedure/Surgical History Hip arthroplasty| Service Date: 3Arthroplasty of left hip| Service Date: 3Colonoscopy| Service Date: 11/16/2019Cataract surgery - Right| Service Date: 07/12/2019Mammogram| Service Date: 07/09/2019Cardiac catheterization| Service Date: 2019Mammogram| Service Date:06/25/2018Surgery| Service Date: 12/19/2017Mammogram| Service Date: 06/19/2017Echocardiogram| Service Date: 05/05/2017Mammogram - screening| Service Date: 06/17/2016Colonoscopy| Service Date: 11/02/2014Hysterectomy| Service Date: 1990dex scancolonoscopyFNA - Fine needle aspiration Medications calcium-vitamin D(Calcium 600+D), See Instructions cyanocobalamin(Vitamin B12 250 mcg oral tablet), 250 mcg= 1 tab, PO, Daily cycloSPORINE ophthalmic(Restasis 0.05% ophthalmic emulsion), 1 drop, both eyes, q12h, 3 refills docusate(docusate sodium 100 mg oral capsule), See Instructions fluticasone nasal(fluticasone 50 mcg/inh nasal spray), See Instructions metoprolol(Metoprolol Tartrate 25 mg oral tablet), See Instructions, 3 refills pravastatin(pravastatin 20 mg oral tablet), 20 mg= 1 tab, PO, qhs, 3 refills unknown medication(Mushroom supplement) unknown medication([facility]) Allergies morphine (Mild)Vomiting Pollenunknown Social History Smoking Status Never smoked cigarettes Alcohol Type:Wine Frequency:3-5 times per week Exercise Exercise type:Walking, Yoga Nutrition/Health - Comments: health conscious Substance Abuse - Denies Substance Abuse Tobacco - Denies Tobacco Use Family History Breast cancer: Mother and Sister. Heart disease: Father. High Blood Pressure: Father and PGF. Lung cancer..: MGF. Parkinson disease: Father. Stroke: PGF. Health Status Family Member(s) Immunizations Vaccine Date Status SARS-CoV-2 mRNA (tlegrtcvupj-tykh-ylz) 12/03/2022 Recorded influenza virus vaccine, inactivated 11/29/2022 Recorded SARS-CoV-2 (COVID-19) mRNA-1273 vaccine 05/29/2021 Recorded SARS-CoV-2 (COVID-19) mRNA-1273 vaccine 12/09/2020 Recorded SARS-CoV-2 (COVID-19) mRNA BNT-162b2 vax 11/29/2020 Recorded SARS-CoV-2 (COVID-19) mRNA BNT-162b2 vax 05/06/2020 Recorded SARS-CoV-2 (COVID-19) mRNA BNT-162b2 vax 05/06/2020 Recorded SARS-CoV-2 (COVID-19) mRNA BNT-162b2 vax 04/10/2020 Recorded SARS-CoV-2 (COVID-19) mRNA BNT-162b2 vax 04/10/2020 Recorded influenza virus vaccine, inactivated 12/01/2019 Recorded pneumococcal 23-valent vaccine 08/23/2019 Given influenza virus vaccine, inactivated 01/02/2019 Recorded zoster vaccine, inactivated 10/16/2017 Given zoster vaccine, inactivated 07/18/2017 Given Comments : ADJUNCTIVE SUSPENSION COMPONENT LOT: [id number] EXO: 06/19/2019 tetanus/diphtheria/pertuss, acel (Tdap) 10/21/2016 Given pneumococcal 13-valent vaccine 07/26/2015 Given zoster vaccine live 09/08/2014 Given pneumococcal 23-valent vaccine 05/03/2011 Given tetanus/diphtheria/pertuss, acel (Tdap) 10/31/2006 Recorded Recommendations Health Maintenance Pending(in the next year) OverDue Medicare Annual Wellness Visit due11/02/21and every 1year Due Adult Social Determinants of Health Screening due05/23/23Unknown Frequency Due In Future Adult Influenza Vaccine not due until08/24/23and every 1year Satisfied(in the past 1 year) Satisfied Adult COVID-19 Vaccination on12/03/22.Satisfied by HALEY Cameron Angela Adult Influenza Vaccine on11/29/22.Satisfied by CINTHIA Art, [place] Body Mass Index on05/22/23.Satisfied by HALEY Cameron Angela Breast Cancer Screening on07/19/22.Satisfied by HALEY Henry Angela Lipid Screening on05/16/23.Satisfied by [employer], [place] Osteoporosis Screening on01/13/23.Satisfied by HALEY Henry Angela Lab Results Test Name Test Result Date/Time ALT 19 unit/L 05/16/2023 07:10 EDT AST 29 unit/L 05/16/2023 07:10 EDT Chol 193 mg/dL 05/16/2023 07:10 EDT Chol 250 mg/dL 01/30/2023 07:56 EST Chol 262 mg/dL 10/22/2022 08:45 EDT LDL Chol, Calculated 90 mg/dL 05/16/2023 07:10 EDT LDL Chol, Calculated 138 mg/dL 01/30/2023 07:56 EST LDL Chol, Calculated 152 mg/dL 10/22/2022 08:45 EDT HDL 88 mg/dL 05/16/2023 07:10 EDT Non-HDL 105 mg/dL 05/16/2023 07:10 EDT Chol/HDL 2 05/16/2023 07:10 EDT TG 75 mg/dL 05/16/2023 07:10 EDT HbA1c 5.4 % 05/16/2023 07:10 EDT Estimated Average Glucose 108 mg/dL 05/16/2023 07:10 EDT Electronic Signature on File Electronically Reviewed/Signed by: JOJO Vigil Author Signature Dt/Tm:05/23/2023 08:41 AM Department of Family Medicine [facility] Patient Care team information Care Team Personnel Name: JOJO Espinal Shari A Position: Nurse Pract - Family Med Member Role: Primary Care Provider Address: Address: [address] [place] [address], [place] [address] Care Team Related Persons Name: GABBIE MUNROE Address: Address: home [address] [facility], [place] [id number] Name: PORTER MUNROE Address: home [address] [facility], [place] [id number]"
--- OUTSIDE RECORDS SUMMARY | 2023-06-02 05:36 | External Medical Summary | Continuity of Care Document ---
Author Name Unknown Organization [facility] [address] [facility] 2 Address [address] [id number] Care Team Providers Care Perfect Binder Feeder Offbearer Name Role Phone Pao Espinal Madai Primary Care Physician [phone] Encounter [facility] [id number] Date(s): 05/22/23 - 05/22/23 [facility] [address] [phone] [place] Encounter Diagnosis Seborrheic keratoses(Discharge Diagnosis) - 05/22/23 Plummer angioma(Discharge Diagnosis) - 05/22/23 Discharge Disposition: Home or Self Care Attending Physician: JAYLYN Daniels Dawn M Referring Physician: MD Prieto, Brent Crawford Allergies, Adverse Reactions, Alerts Substance Reaction Severity Status morphine Vomiting Mild Active Pollen unknown Active Assessment and Plan Extracted from: Title:Dermatology Office Visit Note Author:Jac soriano PA-C, Dawn M Date:05/22/23 1.Seborrheic keratoses - chronic and stable -SEBORRHEIC KERATOSES - discussed the likely benign and genetic nature of these lesions._ watchful waiting. 2.Plummer angioma - chronic and stable -PLUMMER ANGIOMAS - discussed the likely benign and genetic nature of these lesions. watchful waiting Discussed ABCDE and "ugly duckling" sign of melanoma. Discussed self skin exams monthly. Reviewed sun protection with SPF 30 or higher applied every 80 minutes and use of sun protective clothing and hat. Handout guide provided for patient reference. Call with questions or concerns. Follow up prn. Patient in agreement with plan. Immunizations Given and Recorded Vaccine Date Status Refusal Reason SARS-CoV-2 mRNA ([id number]) 12/03/22 Re corded influenza virus vaccine, inactivated 11/29/22 Facundo rded influenza virus vaccine, inactivated 12/01/19 Facundo rded influenza virus vaccine, inactivated 01/02/19 Afcundo rded SARS-CoV-2 (COVID-19) mRNA-1273 vaccine 05/29/21 R [...] TWICE A DAY NEEDED FOR CONSTIPATION, [facility]acy: [facility] Start Date: 04/19/22 Status: Ordered fluticasone 50 mcg/inh nasal spray Start: 04/19/22 10:56:00 EST, See Instructions, Disp# 48 mL, Refills: 1, USE 1 SPRAY IN EACH NOSTRIL DAILY, [facility]acy: [facility] Start Date: 04/19/22 Status: Ordered [facility] Start: 07/21/19 11:03:00 EDT, [facility] Start Date: 07/21/19 Status: Ordered Metoprolol Tartrate 25 mg oral tablet Start: 10/22/22 8:02:00 EDT, See Instructions, Disp# 180 tab, Refills: 3, TAKE 1 TABLET BY MOUTH TWICE A DAY, [id number] Start Date: 10/22/22 Status: Ordered Mushroom supplement Start: 05/22/23 8:58:00 EDT, Mushroom supplement Start Date: 05/22/23 Status: Ordered pravastatin 20 mg oral tablet Start: 03/06/23 16:06:00 EST, 1 tab, PO, qhs, Disp# 90 tab, Refills: 3, Pharmacy: [facility]/pharmacy #[id number] Start Date: 03/06/23 Status: Ordered Restasis 0.05% ophthalmic emulsion Start: 10/22/22 8:02:00 EDT, 1 drop, both eyes, q12h, Disp# 60 each, Refills: 3, Pharmacy: [facility]/pharmacy #[id number] Start Date: 10/22/22 Status: Ordered Vitamin B12 250 mcg oral tablet Start: 07/26/15 14:08:00, 1 tab, PO, Daily Start Date: 07/26/15 Status: Ordered Mental Status 05/22/23 Barriers to Learning one year None evide nt Mandatory Health Literacy Documentation Yes Health Literacy Communication Barriers N ever Primary Language Syriac Problem List Condition Confirmation Course Effective Dates [...] Effective Dates Health Status Clinical Service Informant Plummer angioma Discharge Diagnosis 05/22/23 Seborrheic keratoses Discharge Diagnosis 05/22/23 Procedures Procedure Date Related Diagnosis Body Site [...] adenoma; repeat 5 years 12partial, ovaries intact 134/2004, 05/2007 141/2006 15right breast 04/1997 left breast 06/1998 Social History Social History Type Response Smoking Status Never smoked cigaret alverto Sex Dermatology Outpatient Note * JAYLYN Daniels, Danni Hernández: PERFORM Event Display: Dermatology Outpt Note Authored Date: Chief Complaint skin check- spot on left lower leg. History of Present Illness TYE MUNROE Bis a72 year old patient [place] today [place] of skin check- spot on left lower leg.. The patient feels the condition is stable.She denies itching, bleeding, oozing, crusting or evolving lesions. Patient hasno past personal history of skin cancer: Family history: DAD had BCC but was a haddad Patient uses sunscreen. Patient reports history of blistering sunburnsbut notanning beds. Grew up in [place]. Never worked outdoors. Works for [employer]. Grandkids in [place] Review of Systems Denies fever, chills, sweats, night sweats, weight loss, headache, visual change, stomach upset diarrhea and joint pain. Physical Exam _Constitutional: Generally well appearing, well developed. Appears stated age. Eyes: Conjunctivae and lids without noted inflammation, lesion, mass, deformity or drainage. Cardiovascular: Swelling of the lower extremities not noted. Extremities pink, warm and dry. Extremities: Digits and nails without clubbing, cyanosis, petechiae, signs of ischemia, infectionor inflammation. Neurological / Psychiatric: Oriented to person, place and time. Appropriate mood and affect. No notable depression, anxiety or agitation. Complete skin exam was performed today including head, neck, chest, axillae, abdomen, groin, buttocks, back, bilateral upper and bilateral lower extremities. Palpation of the scalp, inspection of hair of scalp, eyebrows and finger and toenails was performed. The exam was within normal limits the exception of: PATIENT DECLINED PPAP COORDINATOR ARMS, LEGS, TRUNK many pinkpoint to 4mm red vascular papules consistent with plummer angioma RIGHT NECK hyperkeratotic plaques and papules consistent with seborrheic keratoses Assessment/Plan 1.Seborrheic keratoses - chronic and stable -SEBORRHEIC KERATOSES - discussed the likely benign and genetic nature of these lesions._ watchful waiting. 2.Plummer angioma - chronic and stable -PLUMMER ANGIOMAS - discussed the likely benign and genetic nature of theselesions. watchful waiting Discussed ABCDE and "ugly duckling" sign of melanoma. Discussed self skin exams monthly. Reviewed sun protection with SPF 30 or higher applied every 80 minutes and use of sun protective clothing and hat. Handout guide provided for patient reference. Call with questions or concerns. Follow up prn. Patient in agreement with plan. Problem List/Past Medical History Ongoing ANXIETY Arthritis ASTHMA Breast mass Cataract Cholelithiasis Dysuria FAMILY HISTORY OF OTHER SPECIFIED MALIGNANT NEOPLASM [...] qhs, 3 refills unknown medication(Mushroom supplement) unknown medication([facility]) unknown medication([facility]) Allergies morphine (Mild)Vomiting Pollenunknown Social [...] Father. Stroke: PGF. Health Status Family Member(s) Electronic Signature on File Electronically Reviewed/Signed by: TRENTON Freeman Author Signature Dt/Tm:05/22/2023 09:20 AM Department of Family Medicine Department of Dermatology [facility] Patient Care team information Care Team Personnel Name: JOJO Espinal Shari A Position: Nurse Pract - Family Med Member Role: Primary Care Provider Address: Address: [address] [place] [address], [place] [address] Care Team Related Persons Name: GABBIE MUNROE Address: [place] Address: home [address] [facility], [place] [phone] Name: PORTER MUNROE Address: home [address] [facility], [place] [id number]
--- OUTSIDE RECORDS SUMMARY | 2023-06-02 05:36 | External Medical Summary | Continuity of Care Document ---
Author Name Unknown Organization [facility] [address] Address [address] [place], [place] [phone] Care Team Providers Care Station Engineer Chief Name Role Phone Pao Espinal Primary Care Physician [phone] [id number] Date(s): 05/16/23 - 05/16/23 [facility] [address] [facility] [address] [facility] [address] [place], [place] [phone] Encounter Diagnosis Impaired fasting glucose(Final) - Hyperlipidemia, unspecified(Final) - Discharge Disposition: Home or Self Care Attending Physician: JOJO Espinal Shari A Referring Physician: JOJO Espinal Shari A Allergies, Adverse Reactions, Alerts Substance Reaction Severity Status morphine Vomiting Mild Active Pollen unknown Active Immunizations Given and Recorded Vaccine Date Status Refusal Reason SARS-CoV-2 mRNA ([id number]-[id number]-pxm) 12/03/22 Re corded influenza virus vaccine, inactivated [...] TWICE A DAY NEEDED FOR CONSTIPATION, Pharmacy: [facility] Start Date: 04/19/22 Status: Ordered fluticasone 50 mcg/inh nasal spray Start: 04/19/22 10:56:00 EST, See Instructions, Disp# 48 mL, Refills: 1, USE 1 SPRAY IN EACH NOSTRIL DAILY, Pharmacy: [facility] Start Date: 04/19/22 Status: Ordered [facility] Start: 07/30/18 10:39:00 EDT, Juice Plus, Note to Pharmacy: 1 pack daily Start Date: 07/30/18 Status: Ordered [facility] Start: 07/21/19 11:03:00 EDT, [facility] Start Date: 07/21/19 Status: Ordered Metoprolol Tartrate 25 mg oral tablet Start: 10/22/22 8:02:00 EDT, See Instructions, Disp# 180 tab, Refills: 3, TAKE 1 TABLET BY MOUTH TWICE A DAY, Pharmacy: [facility]/pharmacy #[id number] Start Date: 10/22/22 Status: Ordered pravastatin 20 mg oral tablet Start: 03/06/23 16:06:00 EST, 1 tab, PO, qhs, Disp# 90 tab, Refills: 3, Pharmacy: [facility]acy #[id number] Start Date: 03/06/23 Status: Ordered Restasis 0.05% ophthalmic emulsion Start: 10/22/22 8:02:00 EDT, 1 drop, both eyes, q12h, Disp# 60 each, Refills: 3, Pharmacy: [facility]/pharmacy #[id number] Start Date: 10/22/22 Status: Ordered Vitamin B12 250 mcg oral tablet Start: 07/26/15 14:08:00, 1 tab, PO, Daily Start Date: 07/26/15 Status: Ordered Problem List Condition Confirmation Course Effective Dates Status Health Status Informant ANXIETY Confirmed Active Arthritis Confirmed Active ASTHMA Confirmed Active Cholelithiasis Confirmed Active Breast mass Confirmed Active Cataract Confirmed Active Dysuria Confirmed Active FAMILY HISTORY OF OTHER SPECIFIED MALIGNANT NEOPLASM 1 Confirmed Active HEMORRHOIDS Confirmed Active HRT stopped Confirmed Active Hyperlipidemia Confirmed Active HTN (hypertension) [...] 1bcc, parents 2right longer 3left 4fibroadenomatoid nodules Procedures Procedure Date Related Diagnosis Body Site Status Hip arthroplasty 1 06/17/22 Comple karen Colonoscopy 2, 3 11/16/19 Complete d Cataract [...] 141/2006 15right breast 04/1997 left breast 06/1998 Results Laboratory List Name Date ALT Level (ALT) 05/16/23 AST Level (AST) 05/16/23 Hemoglobin A1C (HEMOGLOBIN, A1C) 05/16/23 Lipid Profile (LIPOPROTEINS) 05/16/23 Most recent to oldest [Reference Range]: 1 Estimated Average Glucose 108 mg/dL (05/16/23 7:10 AM) Non-HDL 105 mg/dL 1 (05/16/23 7:10 AM) ALT [<35 unit/L] 19 unit/L 2 (05/16/23 7:10 AM) AST [15-46 unit/L] 29 unit/L 3 (05/16/23 7:10 AM) Chol/HDL 2 (05/16/23 7:10 AM) Chol [125-200 mg/dL] 193 mg/dL (05/16/23 7:10 AM) HbA1c [<5.7 %] 5.4 % 4 (05/16/23 7:10 AM) HDL [>35 mg/dL] 88 mg/dL (05/16/23 7:10 AM) LDL Chol, Calculated [50-130 mg/dL] 90 m g/dL (05/16/23 7:10 AM) TG [<200 mg/dL] 75 mg/dL (05/16/23 7:10 AM) 1Result Comment: Testing Performed By: Dept of Pathology [facility] [address], [address], [place] [address] 2Result Comment: Testing Performed By: Dept of Pathology [facility] [address], [address], [place] [address] 3Result Comment: Testing Performed By: Dept of Pathology [facility] [address], [address] [place] [address] 4Result Comment: ADA Recommended [place] Reference Range: Normal: <5.7% Prediabetes: 5.7-6.4% Diabetes: >6.4% Social History Social History Type Response Smoking Status Never smoked cigaret alverto Sex Patient Care team information Care Team Personnel Name: JOJO Espinal Shari A Position: Nurse Pract - Family Med Member Role: Primary Care Provider Address: Address: [address] [place] [address] [address] [place] [address] [place] Care Team Related Persons Name: GABBIE MUNROE Address: [place] Address: home [address] [facility], [place] [phone] Name: PORTER MUNROE Address: home [address] [facility], [place] [phone]
[2023-06-02] MEDS: LR 60ML/HR IV SCH (06:00)
[2023-06-02] MEDS: LR 500ML BOLUS, THEN 15ML/HR IV SCH (06:00)
[2023-06-02] MEDS: ACETAMINOPHEN 500 MG TAB PO SCH ×2 (06:00→15:31)
[2023-06-02] MEDS: FAMOTIDINE 20 MG TAB PO SCH (06:01)
[2023-06-02] MEDS: GABAPENTIN 300 MG CAP PO SCH (06:01)
[2023-06-02] MEDS: dexAMETHasone**PF** 10 MG/ML VIAL IV SCH (06:01)
[2023-06-02] MEDS ORDERED: BUPIVACAINE 0.5 % 5 MG/1 ML PF 10ML VIAL ONE (06:09)
[2023-06-02] MEDS ORDERED: fentaNYL citrate PF 100 MCG/2 ML VIAL ONE (06:33)
[2023-06-02] MEDS ORDERED: MIDAZOLAM HCL 1 MG/ML 2ML VIAL ONE ×2 (06:33→07:34)
--- NOTE | 2023-06-02 06:35 | History & Physical Bridge Note ---
Date of Service June 02, 2023 History & Physical Bridge Note I have examined the patient, reviewed the History & Physical and in the interval since the performance of the History & Physical I have noted the following changes of clinical significance: no changes noted
[2023-06-02] MEDS ORDERED: PROPOFOL IV EMULSION 10 MG/ML 20 ML VIAL IV ONE ×3 (06:36→07:38)
[2023-06-02] MEDS: TRANEXAMIC ACID 1,000 MG **IV Pre-op IV SCH (06:40)
[2023-06-02] MEDS ORDERED: ATROPINE SULFATE 0.1 MG/ML 10ML SYR IV PRN (06:53)
[2023-06-02] MEDS ORDERED: ONDANSETRON INJ 2 MG/ML 2 ML VIAL IV PRN ×2 (06:53→10:11)
[2023-06-02] MEDS ORDERED: fentaNYL citrate PF 100 MCG/2 ML VIAL IV PRN (06:53)
[2023-06-02] MEDS ORDERED: ePHEDrine sulfate 50 MG/ML AMP IV PRN (06:53)
[2023-06-02] MEDS: ceFAZolin 2000MG 2,000 MG/15 ML SYR IV SCH ×2 (06:58→15:31)
[2023-06-02] MEDS ORDERED: ePHEDrine sulfate 50 MG/5 ML SYR ONE (07:11)
[2023-06-02] MEDS: ROPIV 0.5% 246mg, Ketorolac 30mg, EPINEPHrine 0.5mg in NSS INFIL SCH (07:39)
[2023-06-02] MEDS: ORTHO JOINT ANESTHETIC ONE (07:40)
[2023-06-02] MEDS ORDERED: LIDOCAINE 2% 2 ML VIAL/AMP(20MG/ML) INFIL ONE (07:41)
[2023-06-02] MEDS: TRANEXAMIC ACID 1,000 MG **IV Intra-op IV SCH (07:51)
--- NOTE | 2023-06-02 08:00 | Operative Report ---
PG Post Operative Report Pre & Post Diagnosis Operation Date: 06/02/23 07:00 Pre-Op Diagnosis: Right Hip Degenerative Joint Disease Post-Op Diagnosis: Right Hip Degenerative Joint Disease I identified the patient and participated in the time-out.: Yes Procedure Operation Date: 06/02/23 07:00 Actual Procedures p Right Anterior Total Hip Arthroplasty(Right) - Alexandro Zhou DO Surgeon Alexandro Zhou DO Property Maintenance Supervisor Alexandro Ch PA-C Estimated Blood Loss 200 Findings Consistent with Post-Op Diagnosis Specimens Right femoral head Description of Procedure Implants used I used a ZimmerBiomet total hip arthroplasty system with a size 3 standard offset Avenir Complete stem, a 52 mm G7 cup with a 25mm screw, an E1 polyet hylene liner, a 36 mm ceramic head with a 0 neck. Zina arrived at the hospital for the above procedure. She was seen in the preoperative holding area and the operative extremity was identified and signed. She was given a spinal anesthetic, a preoperative antibiotic, and TXA. She was then taken back to the operating room and laid on the table in the supine position. She was given basic sedation. The operative leg was secured to a Puristst leg positioner. The hip was then prepped and draped in sterile fashion. A timeout was done and the patient and the operative extremity was properly identified. An anterior approach was used. Dissection was taken down through the fascia and the tensor muscle belly was retracted laterally and the rectus was retracted medially. The circumflex vessels were identified and ligated. The capsule was then incised and tagged for later repair. The femoral neck was then cut and the femoral head was removed. The acetabulum was exposed. Time was spent doing a complete circumferential labral release. Sequential reaming of the acetabulum up to a size 51 reamer was done. Final reamings were done under fluoroscopy to ensure appropriate version. A Biomet 52 mm G7 cup was then impacted into place. A single 25 mm screw was placed. The E1 polyethylene liner was then snapped into place. Surrounding soft tissues were then injected with 100 cc of an orthopedic pain control cocktail. The proximal femur was then exposed. Sequential broaching up to a size 3 broach was done. Off that broach a size 36 head with a 0 neck was trialed. The hip was reduced and fluoroscopic images showed anatomic alignment of the implants in acceptable length. The broach was removed. The final size 3 standard offset Avenir Complete stem was then impacted into place. A ceramic 36 mm head with a 0 neck was then impacted onto the stem and the hip was reduced. Final fluoroscopic images showed anatomic alignment of the hip. The capsule was then closed with #1 Vicryl suture. A dilute betadyne lavage was then done for 3 minutes. The joint was then irrigated with normal saline solution. The fascia was closed with #1 PDS suture. Skin was closed with 2-0 Vicryl, alden, and a Silverlon dressing. She was then transferred to a hospital bed and taken to the post anesthesia care unit in stable condition. She tolerated the procedure well. Alexandro Ch PA-C, was present for the entire procedure. He was critical for patient positioning, prepping, draping, retraction exposure, wound closure and application of sterile dressing. I attest to the content of the Intraoperative Record and any orders documented therein. Any exceptions are noted below.
--- NOTE | 2023-06-02 08:50 | Fluoroscopy Report ---
FL hip RT 1V CLINICAL HISTORY: RIGHT ANTERIOR HIP COMPARISON STUDY: None. FLUOROSCOPY TIME: 10 seconds FLUOROSCOPY IMAGES: 1 Ka,r: 1.1 mGy FINDINGS: There is a right total arthroplasty. The hardware is intact. No fracture or dislocation. IMPRESSION: Fluoroscopic assistance as above. ACT 112: Negative or not required by law. Electronically signed by: Nolan Thao M.D. 06/02/2023 8:49 AM
--- NOTE | 2023-06-02 08:54 | XRay Report ---
AP PELVIS, CROSSTABLE LATERAL RIGHT HIP History: Right total hip arthroplasty. Degenerative arthritis. Postop. FINDINGS: The patient is status post a right total hip arthroplasty. The hardware is intact. No fract ure or dislocation. Skin alden are in place. Evidence for prior left total hip arthroplasty. IMPRESSION: Right total hip arthroplasty. No evidence for hardware complication ACT 112: Negative or not required by law. Electronically signed by: Nolan Thao M.D. 06/02/2023 8:53 AM
--- NOTE | 2023-06-02 09:35 | Anesthesiology Progress Note ---
Date of Service June 02, 2023 Anesthesia Post Procedure Vital Signs Vital Signs: Temp Pulse Pulse Resp BP Pulse Ox O2 Del Method 06/02/23 09:30 97.3 F L 71 20 125/72 94 Room Air 06/02/23 09:20 68 18 122/69 92 Room Air 06/02/23 09:10 70 18 127/68 94 Room Air 06/02/23 09:00 69 20 129/67 94 Room Air 06/02/23 08:50 71 18 128/70 95 Room Air 06/02/23 08:40 70 16 124/65 95 Room Air 06/02/23 08:30 74 18 129/70 95 Room Air 06/02/23 08:20 97.0 F L 81 18 125/70 97 Room Air 06/02/23 05:47 97.9 F 57 L 18 166/75 H 100 Room Air Transfer of Care Handoff Completed per policy Notes Mental Status: alert / awake / arousable and participated in evaluation Patient Amnestic to Procedure: Yes Nausea / Vomiting: adequately controlled Pain: adequately controlled Airway Patency, RR, SpO2: stable & adequate BP & HR: stable & adequate Hydration State: stable & adequate Neuraxial Anesthesia: was administered and sensory block is resolving Anesthetic Complications: no major complications apparent and Pt Satisfied with anesthetic care
[2023-06-02 10:10] VITALS: RESP 16
[2023-06-02] MEDS ORDERED: HYDROmorphone INJ 0.5 MG/0.5 ML SYR IV PRN (10:11)
[2023-06-02] MEDS ORDERED: METOCLOPRAMIDE HCL INJ 5 MG/ML 2 ML VIAL IV PRN (10:11)
[2023-06-02] MEDS ORDERED: MAGNESIUM HYDROXIDE SUSP 30 ML UDC PO PRN (10:11)
[2023-06-02] MEDS ORDERED: bisacodyL 10 MG SUPP PR PRN (10:11)
[2023-06-02] MEDS ORDERED: NALOXONE HCL 0.4 MG/1 ML VIAL/CARP IV PRN (10:11)
[2023-06-02] MEDS ORDERED: ARTIFICIAL TEARS OP PRN (10:30)
[2023-06-02] MEDS: SODIUM CHLORIDE 0.9% 1,000 ML IV SCH (10:48)
[2023-06-02] MEDS: KETOROLAC TROMETHAMINE 15 MG/ML VIAL IV SCH (11:41)
[2023-06-02] MEDS: ASPIRIN 81 MG ECTAB PO SCH (11:41)
[2023-06-02] MEDS: MULTIVITAMIN TAB PO SCH (11:41)
[2023-06-02] MEDS: METOPROLOL TARTRATE 25 MG TAB PO SCH (11:41)
[2023-06-02] MEDS: DOCUSATE SODIUM 100 MG CAP PO SCH (11:42)
[2023-06-02] MEDS: PRAVASTATIN SOD 20 MG TAB PO SCH (20:30)
[2023-06-02] MEDS: oxyCODONE HCL IR 5 MG TAB (IMMEDIATE RELEASE) PO PRN (20:30)
[2023-06-02] MEDS: SENNA 8.6 MG TAB PO SCH (20:30)
[2023-06-03 07:14] VITALS: BP 144/79; PULSE 62; TEMP 98.4; O2SAT 99
[2023-06-03] MEDS: dexAMETHasone 4 MG TAB PO SCH (08:09)
--- NOTE | 2023-06-03 10:43 | Orthopedic Progress Note ---
Date of Service June 03, 2023 Assessment & Plan (1) Status post right hip replacement: Overall, she is doing quite well today with good pain control to the right hip. She will work with physical therapy later this morning to work on ambulation and range of motion exercises. She is on aspirin for DVT prophylaxis. She can be discharged home later this morning pending physical therapy evaluation. She will follow-up with orthopedics in 2 weeks for postoperative management. Subjective . Zina was seen and evaluated this morning resting comfortably in no apparent distress. She notes that her right hip pain is well-controlled. She has been up and out of bed with no significant issues. She has yet to work with physical therapy this morning. She denies any other concerns today. Review of Systems All systems reviewed & are unremarkable except as noted in HPI & below. Physical Exam . On physical examination of the right hip, dressings are clean, dry, intact. Her leg is out in full extension. She has active plantarflexion dorsiflexion to the right ankle. +2 DP and PT pulses. Less than 2-second capillary refill. Normal sensation. Neurovascular intact. Results & Data Results & Data Laboratory Results . Diagnostic Findings . Postoperative x-rays of the right hip show prosthesis to be in anatomical alignment with no signs of fracture complication or loosening. PG Care Time/CCT Total # of Minutes Spent Total Time Spent with Patient: Total time spent is greater than 50% in coordination of care (as documented) at patient's floor/unit and/or counseling patient: Coding Level of Care Code 37305 Post Operative Follow-Up Diagnoses Status post right hip replacement Z96.641
--- NOTE | 2023-06-03 10:45 | Discharge Summary ---
Date of Service June 03, 2023 Principal Diagnosis Same as "Discharge Diagnosis" noted below under Discharge Instructions. Discharge Exam . On physical examination of the right hip, dressings are clean, dry, intact. Her leg is out in full extension. She has active plantarflexion dorsiflexion to the right ankle. +2 DP and PT pulses. Less than 2-second capillary refill. Normal sensation. Neurovascular intact. Discharge Data Procedures Performed Operation Date: 06/02/23 07:00 Actual Procedures p Right Anterior Total Hip Arthroplasty(Right) - Alexandro Zhou DO Ordered Studies 06/02/23 07:00 FL hip RT 1V Routine Hospital Course (1) Status post right hip replacement: On June 02, 2023 Zina arrived at [facility] and underwent a right anterior total hip arthroplasty performed by Dr. Zhou with no complications. She had a spinal anesthetic. Postoperatively, she was started on aspirin for DVT prophylaxis and transferred to the general orthopedic floor in stable condition. Her hospital course was uneventful. On postoperative day #1, her vital signs were stable and her pain was well-controlled. She participated well with physical therapy working on ambulation and range of motion exercises. She was then discharged home in stable condition. She will follow-up with orthopedics in 2 weeks for postoperative management. PG Care Time/CCT Total # of Minutes Spent Total Time Spent with Patient: Total time spent is greater than 50% in coordination of care (as documented) at patient's floor/unit and/or counseling patient: Discharge Plan Discharge Items Patient Disposition: Home - Home Health Services Reason For Visit: Right Hip Degenerative Joint Disease Discharge Diagnosis: Same Activity: Per Instructions section Non-emergency contact: Surgeon Call non-emergency contact if: your temperature is above 101.5, your wound has increased redness, your wound has increased drainage and your wound pain has increased Follow-up/Referrals: Pao Espinal CRNP [Primary Care Provider] - Diet: Regular Addtl Attending Provider Instructions: Activity and Therapy Recommendations: * If you are using [facility] then therapy will be provided at your home until they feel you have accomplished all of your goals. * If you are using [facility] then Physical Therapy will be provided until they feel you are ready to start Outpatient Physical Therapy. * If you are not using home therapy then Outpatient Physical Therapy should start about 3-5 days from your day of surgery. Therapy will last about 6-10 weeks * You were shown a series of exercises in the hospital. Do these exercises three times each day including the exercises you were shown in physical therapy. * Get up and walk several times each day.~ For the first four weeks, try not to stand or walk for more than one hour at a time. If you do stand or walk for more than one hour, you will not hurt anything, but your leg will likely swell.~~ * As you feel comfortable, you may change from the walker or crutches to a cane and~then to independent walking. Medications: * Narcotic You will likely be sent home from the hospital with a prescription for the narcotic pain medication that worked best throughout your stay. * Cefadroxil -take the antibiotic twice a day for 10 days to help with infection * Aspirin Most patients will be required to take Aspirin 81mg twice a day for 6 weeks after surgery. This is obtained [id number] and a prescription is not necessary. * Other medications may be prescribed for specific circumstances. If you have any questions, please call the office at . * Resume previous home medications unless otherwise instructed TEDs/Elastic Stockings: The white elastic stockings help limit swelling and prevent blood clots from forming in your legs. The more you wear them, the more they work. Wear them for six weeks. Dressing Care: Leave the Silverlon dressing in place for 7 days. After 7 days you may remove the dressing. If the incision is not draining then you may leave the alden open to air. If there is a little bit of drainage or if the alden are getting stuck on your clothing then cover the incision with a dry dressing. The alden will be removed at your 2 week follow-up appointment. Showering: You may shower with the Silverlon dressing in place. Do not let the shower spray hit the dressing directly. Pat the Silverlon dressing dry. If the dressing becomes wet underneath, then simply remove the dressing. Keep the incision dry until you are 7 days out from the day of surgery. After 7 days you may remove the Silverlon dressing and shower with the alden exposed. Let soapy water run over the alden and pat them dry. Do not scrub or soak the incision. Things To Watch For: * Drainage from the incision site that occurs more than one week after your surgery. * Increased redness at the incision site. * Fever above 102 degrees Fahrenheit. * Unusual chest pain or shortness of breath. * Call [facility] at with any of the above problems Follow-Up Visit: Follow-up with Dr. Zhou's PA (Alexandro Ch) 2-3 weeks after your day of surgery. He will remove your alden and answer any questions. If you have any additional questions or concerns, Dr Zhou is usually in the office at the same time and will be available An appointment was probably scheduled when you signed-up for surgery in the office. If you have any questions call Office Instructions: More detailed instructions as well as Frequently Asked Questions were provided in a folder by our office when you signed-up for surgery. Please review these instructions when you get home. If you have any further questions or concerns, please feel free to call the office at [phone] Pending Studies at Discharge: No Stand-Alone Forms: My [facility], Smoking Cessation Medications and DC Order Prescriptions: New aspirin 81 mg Tablet,Delayed Release (Dr/Ec) 81 mg PO BID 42 Days Qty: 0 0RF oxycodone 5 mg Tablet 5 mg PO Q6 PRN (Reason: pain) Qty: 30 0RF cefadroxil 500 mg capsule 500 mg PO BID 10 Days Qty: 20 0RF Continued acetaminophen [Tylenol Extra Strength] 500 mg tablet 1,000 mg PO TID 30 Days Qty: 180 0RF Rx Instructions: Take 3 times per day to lessen pain. (DME) Wheeled Walker Misc See Rx Instructions .MEDSUPPLY Qty: 1 0RF Rx Instructions: As directed cyanocobalamin (vitamin B-12) [Vitamin B-12] 1,000 mcg Tablet 2,500 mcg PO QAM calcium carbonate [Calcium 600] 600 mg calcium (1,500 mg) Tablet 600 mg PO HS cyclosporine [Restasis] 0.05 % Dropperette 1 drp OPHTHALMIC (EYE) Q12H metoprolol tartrate 25 mg Tablet 25 mg PO BID cholecalciferol (vitamin D3) [Vitamin D3] 50 mcg (2,000 unit) Tablet 50 mcg PO QAM Macular Health Formula 5-1-7.5 mg Capsule 1 cap PO QAM pravastatin 20 mg Tablet 20 mg PO HS omega-3 fatty acids-fish oil 684-1,200 mg Capsule,Delayed Release(Dr/Ec) 1 cap PO QAM Mushroom Blend 1 unit 1 applic PO QAM sennosides [Senokot] 8.6 mg tablet 8.6 mg PO BID PRN (Reason: prevent constipation) Rx Instructions: Take two times a day to prevent/treat constipation Krames/Other Patient Handouts: Oxycodone Oral Tablet, Hip Replace Home Recovery, Hip Total Replacement Dc Admission Data Admit Date/Time: 06/02/23 08:23 Attending Provider: Alexandro Zhou Admit Provider: Alexandro Zhou Primary Care Provider: Pao Espinal Other Interventions: Discharge Summary Assessment (RN) Last Done: 06/03/23 09:51
== END 2023-06-03 10:45 | disposition home health service (06) ==
LOC: 3E 05:04 → ASU 05:04
DX: M25.751 Osteophyte, right hip; J45.909 Unspecified asthma, uncomplicated; Z79.899 Other long term (current) drug therapy; M16.11 Unilateral primary osteoarthritis, right hip; M65.9 Synovitis and tenosynovitis, unspecified; E78.5 Hyperlipidemia, unspecified; Z88.5 Allergy status to narcotic agent; I10 Essential (primary) hypertension